=== PATIENT | male | born 1975 | race Caucasian/White ===

== ENCOUNTER 2020-12-11 08:09 | Outpatient (REF) | payer BC, SELFPAY ==
[2020-12-11 11:29] LABS: MANUAL DIFF FLAG NO
[2020-12-11 11:37] LABS: Basophils Percent Auto 0.4 % (0-2); Eosinophils Absolute Auto 0.1 X10*3/uL (0.0-0.4); Eosinophils Percent Auto 2.3 % (0-4); Hemoglobin 15.3 g/dl (14.0-18.0); Imm Gran Abs Auto 0.03 X10*3/uL (0.00-0.03); Imm Gran Pct Auto 0.6 % (0.0-0.4); Lymphocytes Absolute Auto 1.7 X10*3/uL (1.2-4.9); Lymphocytes Percent Auto 33.7 % (20-40); Mean Corpuscular Hemoglobin 30.6 pg (27.0-33.0); Monocytes Absolute Auto 0.4 X10*3/uL (0.1-1.2); Monocytes Percent Auto 7.8 % (2-11); Neutrophils Absolute Auto 2.9 X10*3/uL (2.0-8.3); Neutrophils Percent Auto 55.2 % (45-73); Platelet Count 170 X10*3/uL (160-400); Red Cell Distribution Width 12.3 % (11.0-16.0); White Blood Count 5.2 X10*3/uL (4.8-10.8)
[2020-12-11 11:50] LABS: Alanine Aminotransferase 14 U/L (0-40); Albumin Level 4.6 g/dL (3.5-5.0); Alkaline Phosphatase 80 U/L (39-117); Anion Gap 12 (12-20); Aspartate Amino Transferase 16 U/L (5-37); Bilirubin Total 1.2 mg/dL (0.0-1.0); Blood Urea Nitrogen 15 mg/dL (9-16); Calcium 9.5 mg/dL (8.4-10.2); Carbon Dioxide 28 mmol/L (22-29); Chloride 105 mmol/L (96-108); Cholesterol 174 mg/dL; Estimated Glomerular Filt Rate > 60; Glucose Fasting 80 mg/dL (60-99); HDL Cholesterol 51 mg/dL; LDL Cholesterol Calculated 112 mg/dl; Sodium 141 mmol/L (135-145); Total Protein 6.9 g/dL (6.5-8.0); Triglycerides 55 mg/dL
== END 2020-12-11 08:10 | disposition home or self-care (01) ==
LOC: HO.HMGCLDS 08:09
PROVIDERS: PCP Internal Medicine; Visit Provider Internal Medicine
DX: Z00.00 Encounter for general adult medical examination without abnormal findings (principal)
CPT/HCPCS: 36415; 80053; 80061; 85025

== ENCOUNTER 2021-11-20 10:12 | Outpatient (REF) | payer BC, SELFPAY ==
[2021-11-20 10:32] LABS: MANUAL DIFF FLAG NO
[2021-11-20 11:53] LABS: Basophils Percent Auto 0.3 % (0-2); Eosinophils Absolute Auto 0.2 X10*3/uL (0.0-0.4); Hematocrit 43.1 % (42.0-52.0); Hemoglobin 14.4 g/dl (14.0-18.0); Imm Gran Abs Auto 0.05 X10*3/uL (0.00-0.03); Imm Gran Pct Auto 0.5 % (0.0-0.4); Lymphocytes Absolute Auto 1.5 X10*3/uL (1.2-4.9); Lymphocytes Percent Auto 13.7 % (20-40); Mean Corpuscular HGB Conc 33.4 g/dl (31.0-36.0); Mean Corpuscular Hemoglobin 29.6 pg (27.0-33.0); Mean Corpuscular Volume 88.7 fL (80.0-98.0); Mean Platelet Volume 10.4 fL (9.4-12.4); Monocytes Absolute Auto 0.7 X10*3/uL (0.1-1.2); Monocytes Percent Auto 5.9 % (2-11); Neutrophils Absolute Auto 8.6 x10*3/uL (2.0-8.3); Neutrophils Percent Auto 77.6 % (45-73); Platelet Count 198 X10*3/uL (160-400); Red Blood Count 4.86 X10*6/uL (4.60-5.80); Red Cell Distribution Width 12.5 % (11.0-16.0); White Blood Count 11.1 X10*3/uL (4.8-10.8)
[2021-11-20 11:55] LABS: Appearance Urine CLEAR; Color Urine STRAW; Glucose Urine UA NEG (NEG); Leukocyte Esterase Urine NEG (NEG); Nitrite Urine NEG (NEG); Specific Gravity - Urine <= 1.005 (1.005-1.025); Urine Blood TRACE (NEG); Urine Ketones NEG (NEG); Urine Protein NEG (NEG-TRACE)
[2021-11-20 12:04] LABS: WBC Urine 0 /HPF (0-4)
[2021-11-20 13:00] LABS: Alanine Aminotransferase 12 U/L (0-40); Albumin Level 4.3 g/dL (3.5-5.0); Alkaline Phosphatase 88 U/L (39-117); Anion Gap 13 (12-20); Aspartate Amino Transferase 13 U/L (5-37); Bilirubin Total 0.8 mg/dL (0.0-1.0); Blood Urea Nitrogen 13 mg/dL (9-16); C Reactive Protein 4.92 mg/dL (< or = 0.50); Calcium 9.8 mg/dL (8.4-10.2); Carbon Dioxide 30 mmol/L (22-29); Chloride 103 mmol/L (96-108); Cholesterol 148 mg/dL; Estimated Glomerular Filt Rate > 60; Glucose Random 71 mg/dL (60-115); Lipase 22 U/L (8-78); Potassium 4.6 mmol/L (3.3-5.1); Sodium 141 mmol/L (135-145)
== END 2021-11-20 10:13 | disposition home or self-care (01) ==
LOC: HO.LAB 10:12
PROVIDERS: PCP Internal Medicine; Visit Provider Internal Medicine
DX: Z00.00 Encounter for general adult medical examination without abnormal findings (principal)
CPT/HCPCS: 36415; 80053; 81001; 82465; 83690; 85025; 86140; 87086

== ENCOUNTER 2021-11-21 13:45 | Outpatient (REF) | payer BC, SELFPAY ==
--- NOTE | ~2021-11-21 | CT_ITS ---
EXAMINATION: CT ABDOMEN AND PELVIS WITHOUT CONTRAST CLINICAL INFORMATION: Abdominal pain question pancreatitis COMPARISON: None TECHNIQUE: Multidetector volumetric imaging was performed from the superior aspect of the liver through the pubic symphysis. Sagittal and coronal reformatted images were obtained on the technologist's workstation. This CT examination was performed using dose optimization techniques as appropriate, variously including the following: *Automated exposure control *Adjustment of mA and/or kV according to patient size (this includes techniques or standardized protocols for targeted exams where dose is matched to indication/reason for exam; i.e. extremities or head) *Use of iterative reconstruction technique DLP: 527 mGy-cm FINDINGS: LUNG BASES: The lung bases are clear. The heart size is normal. LIVER, GALLBLADDER, AND BILIARY TREE: The liver is normal in size, shape, and attenuation. No focal hepatic lesion or biliary ductal dilatation is present. The gallbladder is unremarkable with no evidence of radiopaque gallstones, gallbladder wall thickening, or obvious pericholecystic inflammatory changes. PANCREAS: Unremarkable. SPLEEN: Unremarkable. ADRENAL GLANDS: Unremarkable. KIDNEYS AND URETERS: The kidneys are normal in size, shape, and attenuation. There is a 3 minute nonobstructive radiopaque calculi upper pole left kidney and a 1 mm nonobstructive radiopaque calculi lower pole right kidney. No additional radiopaque calculi seen. There is no hydronephrosis. BLADDER: Unremarkable. GASTROINTESTINAL TRACT: There is scattered stool and gas seen throughout the colon without distention. Oral contrast and best stomach and the proximal small bowel loops are normal. The appendix is abnormal with a mural thickening of 1.5 cm and dottie appendix fat stranding suggestive of acute appendicitis. There is no appendicolith, abnormal fluid collection or free air. No proximal bowel obstruction seen. ABDOMINAL WALL: There is scattered stool and gas seen throughout the colon without any significant distention. The small bowel loops are normal caliber. LYMPH NODES: Normal. VASCULAR: Unremarkable. PELVIC VISCERA: The prostate gland is normal size with eccentric peripheral calcification. OSSEOUS STRUCTURES: No lytic or sclerotic process seen. CT/CT abdomen pelvis wo con IMPRESSION: Findings suggestive of acute appendicitis without rupture or abscess. No proximal bowel obstruction seen. Results were called to Dr. Pierce by phone at 11:20 AM. Fleischner guidelines were followed.
== END 2021-11-21 13:46 | disposition home or self-care (01) ==
LOC: HO.CT 13:45
PROVIDERS: PCP Internal Medicine; Visit Provider Internal Medicine
DX: R10.9 Unspecified abdominal pain (principal); R79.82 Elevated C-reactive protein (CRP)
CPT/HCPCS: 74176

== ENCOUNTER 2021-11-22 12:43 | Inpatient (IN) | payer BC, SELFPAY ==
[2021-11-22 12:47] VITALS: BP 199/65; PULSE 70; RESP 16; O2SAT 98; BMI 25.3
--- NOTE | 2021-11-22 13:08 | ED.ABDPAIN ---
HPI - Abdominal Pain General Chief Complaint: Abdominal Pain Stated Complaint: appendix Time Seen by Provider: 11/22/21 12:58 Source: patient Mode of arrival: ambulatory Limitations: no limitations History of Present Illness MD elicited complaint: abdominal pain Pertinent past history: none Onset (ago): day(s) (3) Pain Consistency: constant Location: RLQ Severity: moderate Quality: aching Radiation: none Migration to: no migration Exacerbating factors: movement Relieving factors: medication (advil) Associated symptoms: denies other symptoms Treatments prior to arrival: other (took advil at 7am) Related Data Home Medications Medication Instructions Recorded Confirmed lamotrigine 25 mg tablet 2 tab PO DAILY 11/22/21 11/22/21 Allergies Allergy/AdvReac Type Severity Reaction Status Date / Time No Known Allergies Allergy Verified 11/22/21 12:46 Review of Systems Review of Systems Constitutional : No Weight loss, No Fever, No Chills ENT/Mouth : No sore throat, No Rhinorrhea Eyes: No Swelling, No Redness Cardiovascular : No Chest Pain, No SOB, NoEdema Respiratory : No Cough, No Sputum, No Wheezing Gastrointestinal : no Nausea, no Vomiting, no Diarrhea, positive abdominal Pain, No Hematochezia, No Melena Genitourinary : No Dysuria, No Urinary Frequency, No Hematuria, No Urgency Musculoskeletal : No joint pain, No Myalgias, No Joint Swelling Skin : No Skin Lesions, No rash Neuro : No Weakness, No Numbness, No Dizziness, No Headache Psych : No Anxiety/Panic, No Depression Heme/Lymph: No Bruising, No Lymphadenopathy Endocrine : No Polyuria, No Polydipsia All other systems reviewed and are negative. FOR[facility], [facility] Past Medical History Attestation statement: The following information was validated with the patient. Medical History (Updated 11/22/21 @ 13:48 by Jordan Gutierrez MD) History of depression No pertinent past medical history Social History Social History (Updated 11/22/21 @ 13:27 by Francesca Brewster DO) Patient Tobacco Use Status: Never used Tobacco Advance Directives: No Advance Directives Information Provided: No Physical Exam ED Vital Signs: Vital Signs - 24 hr 11/22/21 12:47 Pulse Rate 70 Respiratory Rate 16 Blood Pressure 199/65 H Pulse Oximetry 98 BMI result Body Mass Index 25.3 Appearance: Alert. Oriented X3. No acute distress. Eyes: Pupils equal, round and reactive to light. ENT: Pharynx normal. Neck: Normal inspection. Neck supple. CVS: Normal heart rate and rhythm. Pulses normal. Respiratory: No respiratory distress. Breath sounds normal. Abdomen: Soft and mod ttp in RLQ no rebound or guarding Skin: Skin warm and dry. Normal skin color. Normal skin turgor. Extremities: No lower extremity edema. No calf ttp Neuro: Oriented X 3. No motor deficit. No sensory deficit. Course Course Course Narrative: Dr. Gutierrez aware 105pm to admit patient MDM - Abdominal Pain MDM Narrative Medical decision making narrative: 46 yo male with 3 days of RLQ pain dx with appendicitis by outpatient CT scan yesterday - at this time labs, IV toradol for pain, fluids NPO status, IV zosyn and surgery consult placed - planned admit. Patiend did eat today last 11am Lab Data Result diagrams: 11/22/21 13:37 11/22/21 13:37 Labs: Lab Results 11/22/21 11/22/21 11/22/21 Range/Units 13:37 13:37 13:37 WBC 12.0 H (4.8-10.8) X10*3/uL RBC 4.69 (4.60-5.80) X10*6/uL Hgb 14.2 (14.0-18.0) g/dl Hct 41.4 L (42.0-52.0) % MCV 88.3 (80.0-98.0) fL MCH 30.3 (27.0-33.0) pg MCHC 34.3 (31.0-36.0) g/dl RDW 12.4 (11.0-16.0) % Plt Count 194 (160-400) X10*3/uL MPV 9.8 (9.4-12.4) fL Immature Gran % (Auto) 0.3 (0.0-0.4) % Neut % (Auto) 78.8 H (45-73) % Lymph % (Auto) 11.9 L (20-40) % Andrew % (Auto) 6.9 (2-11) % Eos % (Auto) 1.8 (0-4) % Baso % (Auto) 0.3 (0-2) % Lymph # (Auto) 1.4 (1.2-4.9) X10*3/uL Andrew # (Auto) 0.8 (0.1-1.2) X10*3/uL Eos # (Auto) 0.2 (0.0-0.4) X10*3/uL Baso # (Auto) 0.0 (0.0-0.2) X10*3/uL Abs Immat Gran (auto) 0.03 (0.00-0.03) X10*3/uL Absolute Neuts (auto) 9.4 H (2.0-8.3) x10*3/uL Absolute Nucleated RBC 0.000 (0.0-0.012) X10*3/uL Nucleated RBC % (auto) 0.0 (0.0-0.2) /100WBC PT (9.9-13.0) SEC INR (0.9-1.1) APTT (24.1-38.0) SEC Sodium 141 (135-145) mmol/L Potassium 4.6 (3.3-5.1) mmol/L Chloride 104 (96-108) mmol/L Carbon Dioxide 31 H (22-29) mmol/L Anion Gap 11 L (12-20) BUN 13 (9-16) mg/dL Creatinine 1.02 (0.5-1.4) mg/dL Estim Creat Clear Calc 104.4 Estimated GFR > 60 Random Glucose 88 (60-115) mg/dL Lactic Acid 0.9 (0.5-2.0) mmol/L Calcium 9.4 (8.4-10.2) mg/dL Magnesium 2.1 (1.6-2.6) mg/dL Total Bilirubin 0.6 (0.0-1.0) mg/dL Direct Bilirubin 0.2 (0.0-0.5) mg/dL AST 12 (5-37) U/L ALT 12 (0-40) U/L Alkaline Phosphatase 86 (39-117) U/L Total Protein 6.8 (6.5-8.0) g/dL Albumin 4.2 (3.5-5.0) g/dL Lipase 19 (8-78) U/L COVID-19 (MARIA L) (Negative) COVID-19 Clin Com 11/22/21 11/22/21 Range/Units 13:37 13:38 WBC (4.8-10.8) X10*3/uL RBC (4.60-5.80) X10*6/uL Hgb (14.0-18.0) g/dl Hct (42.0-52.0) % MCV (80.0-98.0) fL MCH (27.0-33.0) pg MCHC (31.0-36.0) g/dl RDW (11.0-16.0) % Plt Count (160-400) X10*3/uL MPV (9.4-12.4) fL Immature Gran % (Auto) (0.0-0.4) % Neut % (Auto) (45-73) % Lymph % (Auto) (20-40) % Andrew % (Auto) (2-11) % Eos % (Auto) (0-4) % Baso % (Auto) (0-2) % Lymph # (Auto) (1.2-4.9) X10*3/uL Andrew # (Auto) (0.1-1.2) X10*3/uL Eos # (Auto) (0.0-0.4) X10*3/uL Baso # (Auto) (0.0-0.2) X10*3/uL Abs Immat Gran (auto) (0.00-0.03) X10*3/uL Absolute Neuts (auto) (2.0-8.3) x10*3/uL Absolute Nucleated RBC (0.0-0.012) X10*3/uL Nucleated RBC % (auto) (0.0-0.2) /100WBC PT 13.1 H (9.9-13.0) SEC INR 1.2 H (0.9-1.1) APTT 36.3 (24.1-38.0) SEC Sodium (135-145) mmol/L Potassium (3.3-5.1) mmol/L Chloride (96-108) mmol/L Carbon Dioxide (22-29) mmol/L Anion Gap (12-20) BUN (9-16) mg/dL Creatinine (0.5-1.4) mg/dL Estim Creat Clear Calc Estimated GFR Random Glucose (60-115) mg/dL Lactic Acid (0.5-2.0) mmol/L Calcium (8.4-10.2) mg/dL Magnesium (1.6-2.6) mg/dL Total Bilirubin (0.0-1.0) mg/dL Direct Bilirubin (0.0-0.5) mg/dL AST (5-37) U/L ALT (0-40) U/L Alkaline Phosphatase (39-117) U/L Total Protein (6.5-8.0) g/dL Albumin (3.5-5.0) g/dL Lipase (8-78) U/L COVID-19 (MARIA L) Negative (Negative) COVID-19 Clin Com See Note Discharge Plan Discharge Clinical Impression: Abdominal pain Qualifiers: Abdominal location: right lower quadrant Qualified Code(s): R10.31 - Right lower quadrant pain Acute appendicitis Qualifiers: Acute appendicitis type: with localized peritonitis Appendicitis gangrene presence: without gangrene Appendicitis perforation presence: without perforation Appendicitis abscess presence: without abscess Qualified Code(s): K35.30 - Acute appendicitis with localized peritonitis, without perforation or gangrene Patient Disposition: Admitted As Inpatient
[2021-11-22 13:44] LABS: MANUAL DIFF FLAG NO
--- NOTE | 2021-11-22 13:45 | P.HPGS_ITS ---
History of Present Illness History of Present Illness Date of Service: 11/23/21 Chief complaint: Acute appendicitis Narrative: Jabier Matos III is a 46 year old male here in the ER because of lower quadrant pain. This started about 4 days ago. He says that this actually seemed to be more of the epigastric area at that time but has since been on the lower quadrant and the suprapubic areas. He had seen his primary care physician days ago. He was sent for a CT scan which was done yesterday. He was actually at home today and he was called to go to the ER because of findings on the CT scan showing appendicitis . He says that he actually feels a little better today compared to yesterday. He says that the worst he had was about a day before and yesterday. He denies any fever at home. He denies any vomiting. He denies any urinary complaints. He also says that he would not have come to the emergency room today if nobody had instructed him to do so. Review of Systems Constitutional: Constitutional: Denies chills and Denies fever(s) Cardiovascular: Cardiovascular: Denies chest pain, Denies dyspnea and Denies dyspnea on exertion Respiratory: Respiratory: Denies cough, Denies dyspnea and Denies dyspnea on exertion Gastrointestinal: Gastrointestinal: Denies hematochezia and Denies change in bowel habits Genitourinary: Genitourinary: Denies hematuria and Denies difficulty urinating Musculoskeletal: Musculoskeletal: Denies back pain and Denies limited range of motion Neurologic: Denies focal weakness and Denies convulsions Psychiatric: Psychiatric: Denies depression and Denies mood swings PMFSH Past Medical History Medical History (Updated 11/22/21 @ 13:48 by Jordan Gutierrez MD) History of depression No pertinent past medical history Social History Social History (Updated 11/22/21 @ 13:27 by Francesca Brewster DO) Household Members: Spouse Housing: House Do you presently have visiting nurse or other home services: No Patient Tobacco Use Status: Never used Tobacco service: No Current occupational status: unemployed Meds Allergies Allergy/AdvReac Type Severity Reaction Status Date / Time No Known Allergies Allergy Verified 11/22/21 12:46 Active Medications: Current Medications Lactated Ringer's (Lr) 1,000 mls @ 999 mls/hr IV .Q1H1M [facility] Stop: 11/22/21 14:00 Sodium Chloride (Ns) 1,000 mls @ 100 mls/hr IVCONT .Q10H [facility] Piperacillin Sod/Tazobactam (Sod 3.375 gm/ Sodium Chloride) 50 mls @ 100 mls/hr IV ONCE ONE Stop: 11/22/21 14:11 Lamotrigine (Lamotrigine 25 Mg Tablet) 50 mg PO DAILY [facility] Morphine Sulfate (Morphine Sulfate 2 Mg/Ml Cartridge) 2 mg IVPUSH Q3H PRN; Protocol PRN Reason: Pain, Severe (Pain Scale 7-10) Ondansetron HCl (Ondansetron Hcl 4 Mg/2 Ml Vial) 4 mg IVPUSH Q8H PRN PRN Reason: nausea Pharmacy Consult (Consult Rx Perform Med Rec) 1 each MISCELLANE ONCE PRN PRN Reason: Consult order Sodium Chloride (0.9 % Sodium Chloride Flush 3 Ml Syringe) 3 ml IVFLUSH QSHIFT [facility] Home Medications Medication Instructions Recorded Confirmed Last Taken Type lamotrigine 25 mg tablet 2 tab PO DAILY 11/22/21 11/22/21 Unknown History Physical Exam Vital Signs: Vital Signs: Last Vital Signs Pulse 70 11/22/21 12:47 Resp 16 11/22/21 12:47 BP 199/65 H 11/22/21 12:47 Pulse Ox 98 11/22/21 12:47 BMI result Body Mass Index 25.3 Const: General: comfortable and no acute distress Orientati on/consciousness: patient oriented x3 Neck: Neck: Yes no lymphadenopathy Resp: Auscultation: clear to auscultation bilaterally Cardio: Rhythm: regular rhythm GI: Palpation (GI): Soft to palpation, nontender and no guarding Neuro: General: patient oriented x3 Results Results Abdomen CT scan report/results: report reviewed and image reviewed CT scan - pelvis: report reviewed and image reviewed Additional studies: Laboratory Results WBC 12.0 X10*3/uL (4.8-10.8) H 11/22/21 13:37 RBC 4.69 X10*6/uL (4.60-5.80) 11/22/21 13:37 Hgb 14.2 g/dl (14.0-18.0) 11/22/21 13:37 Hct 41.4 % (42.0-52.0) L 11/22/21 13:37 MCV 88.3 fL (80.0-98.0) 11/22/21 13:37 MCH 30.3 pg (27.0-33.0) 11/22/21 13:37 MCHC 34.3 g/dl (31.0-36.0) 11/22/21 13:37 RDW 12.4 % (11.0-16.0) 11/22/21 13:37 Plt Count 194 X10*3/uL (160-400) 11/22/21 13:37 MPV 9.8 fL (9.4-12.4) 11/22/21 13:37 Immature Gran % (Auto) 0.3 % (0.0-0.4) 11/22/21 13:37 Neut % (Auto) 78.8 % (45-73) H 11/22/21 13:37 Lymph % (Auto) 11.9 % (20-40) L 11/22/21 13:37 [place] % (Auto) 6.9 % (2-11) 11/22/21 13:37 Eos % (Auto) 1.8 % (0-4) 11/22/21 13:37 Baso % (Auto) 0.3 % (0-2) 11/22/21 13:37 Lymph # (Auto) 1.4 X10*3/uL (1.2-4.9) 11/22/21 13:37 [place] # (Auto) 0.8 X10*3/uL (0.1-1.2) 11/22/21 13:37 Eos # (Auto) 0.2 X10*3/uL (0.0-0.4) 11/22/21 13:37 Baso # (Auto) 0.0 X10*3/uL (0.0-0.2) 11/22/21 13:37 Abs Immat Gran (auto) 0.03 X10*3/uL (0.00-0.03) 11/22/21 13:37 Absolute Neuts (auto) 9.4 x10*3/uL (2.0-8.3) H 11/22/21 13:37 Absolute Nucleated RBC 0.000 X10*3/uL (0.0-0.012) 11/22/21 13:37 Nucleated RBC % (auto) 0.0 /100WBC (0.0-0.2) 11/22/21 13:37 Assessment and Plan (1) Acute appendicitis: Qualifiers: Acute appendicitis type: with localized peritonitis Appendicitis abscess presence: without abscess Appendicitis gangrene presence: without gangrene Appendicitis perforation presence: without perforation Qualified Code(s): K35.30 - Acute appendicitis with localized peritonitis, without perforation or gangrene Status: Acute He has had abdominal pain for about 4-5 days now. He had a CAT scan yesterday as an outpatient showing acute appendicitis. There is no appendicolith in the appendix. He has a very benign exam. He does have some tenderness to deep palpation on the right lower quadrant with no guarding or rebound. He actually states that he feels better today compared to yesterday. I therefore had a long discussion with him about his options. I explained to him the option of proceeding with appendectomy. I discussed the technique of laparoscopic appendectomy and possible open. I reviewed the risks including but not limited to bleeding, infections, injury to the bowel and the urinary tract, well as benefits and alternatives. The other option is to continue with IV antibiotic treatment. I explained to him that if he chooses this route, he may still have episodes of appendicitis in the future. There is also a chance that he clinically gets worse then we may need to proceed with appendectomy anyhow. He says that he 1 to avoid surgery as much as possible especially now. He states that he thinks that he feels better compared to yesterday. He understands that there is a small chance that antibiotic treatment may not work completely. I did explain to him that if I feel that he clinically is worsening or not improving within a reasonable period of time, I would recommend proceeding with the surgical option. His Johanna was with him during the entire discussion. They both feel comfortable with the above. Quality Stroke Does the patient have a stroke diagnosis?: No VTE Prior VTE?: No VTE Risk Level:: Medical - low VTE Device Contraindication: N/A - Device Ordered VTE Drug Contraindication: Treatment Not Indicated Procedures Date of Service Date of Service: 11/22/21
[2021-11-22 13:47] LABS: Basophils Percent Auto 0.3 % (0-2); Eosinophils Absolute Auto 0.2 X10*3/uL (0.0-0.4); Eosinophils Percent Auto 1.8 % (0-4); Hematocrit 41.4 % (42.0-52.0); Hemoglobin 14.2 g/dl (14.0-18.0); Imm Gran Abs Auto 0.03 X10*3/uL (0.00-0.03); Imm Gran Pct Auto 0.3 % (0.0-0.4); Lymphocytes Absolute Auto 1.4 X10*3/uL (1.2-4.9); Lymphocytes Percent Auto 11.9 % (20-40); Mean Corpuscular HGB Conc 34.3 g/dl (31.0-36.0); Mean Corpuscular Hemoglobin 30.3 pg (27.0-33.0); Mean Corpuscular Volume 88.3 fL (80.0-98.0); Mean Platelet Volume 9.8 fL (9.4-12.4); Monocytes Absolute Auto 0.8 X10*3/uL (0.1-1.2); Monocytes Percent Auto 6.9 % (2-11); Neutrophils Absolute Auto 9.4 x10*3/uL (2.0-8.3); Neutrophils Percent Auto 78.8 % (45-73); Platelet Count 194 X10*3/uL (160-400); Red Blood Count 4.69 X10*6/uL (4.60-5.80); Red Cell Distribution Width 12.4 % (11.0-16.0)
[2021-11-22] MEDS: 0.9 % Sodium Chloride 1,000 ML 100 ML IVCONT ×2 (13:57→22:51)
--- NOTE | 2021-11-22 14:01 | PHA.MEDREC ---
Pharmacy Consult ? Medication Reconciliation Pharmacy has completed the medication reconciliation.
[2021-11-22 14:03] LABS: COVID-19 Test Negative (Negative)
[2021-11-22 14:05] LABS: Lactic Acid 0.9 mmol/L (0.5-2.0)
[2021-11-22] MEDS: Piperacillin Sodium/Tazobactam 3.375 GM in 0.9 % Sodium Chloride 50 ML IV ×2 (14:07→19:29)
[2021-11-22 14:09] LABS: Alanine Aminotransferase 12 U/L (0-40); Albumin Level 4.2 g/dL (3.5-5.0); Alkaline Phosphatase 86 U/L (39-117); Anion Gap 11 (12-20); Aspartate Amino Transferase 12 U/L (5-37); Bilirubin Direct 0.2 mg/dL (0.0-0.5); Bilirubin Total 0.6 mg/dL (0.0-1.0); Blood Urea Nitrogen 13 mg/dL (9-16); Calcium 9.4 mg/dL (8.4-10.2); Carbon Dioxide 31 mmol/L (22-29); Chloride 104 mmol/L (96-108); Creatinine Clr Calc Pharmacy 104.4; Estimated Glomerular Filt Rate > 60; Glucose Random 88 mg/dL (60-115); Lipase 19 U/L (8-78); Magnesium 2.1 mg/dL (1.6-2.6); Potassium 4.6 mmol/L (3.3-5.1); Sodium 141 mmol/L (135-145); Total Protein 6.8 g/dL (6.5-8.0)
[2021-11-22 14:25] LABS: INTERNATIONAL NORM RATIO 1.2 (0.9-1.1); Prothrombin Time 13.1 SEC (9.9-13.0)
[2021-11-22 14:28] LABS: Partial Thromboplastin Time 36.3 SEC (24.1-38.0)
--- NOTE | 2021-11-22 17:12 | PM.EVENT ---
Event Note Date of Service: 11/22/21 Event Note: Says he feels okay does not feel worse low-grade pain no nausea or vomiting looks well and comfortable abdomen soft, mildly tender, no guarding rebound he wants to continue with non operative treatment for now IV Zosyn will continue serial abdominal exam repeat CBC in a.m.
--- NOTE | 2021-11-22 18:08 | MHC.CM.PN ---
CM met with admitted patient with bed assignment pending. A&Ox4. HCP/ Johanna Matos ([phone]). HCP is not on file. Copy requested. Vax/Boosted/Beegit. Pt had Covid 19 in August. Pt lives with his and family. Uses no DME/services. D/C plan is home without services. will transport. CM to follow for d/c needs.
[2021-11-22 18:48] VITALS: BP 113/71; PULSE 74; RESP 18; TEMP 37.6; O2SAT 97
[2021-11-22] MEDS: Ibuprofen 600 MG TABLET PO (19:26)
[2021-11-22 19:27] VITALS: BP 110/63; PULSE 76; RESP 16; TEMP 37.2; O2SAT 97
[2021-11-22 23:31] VITALS: BP 102/62; PULSE 66; RESP 16; TEMP 36.7; O2SAT 97
[2021-11-23] MEDS: Piperacillin Sodium/Tazobactam 3.375 GM in 0.9 % Sodium Chloride 50 ML IV ×4 (01:30→19:32)
[2021-11-23 03:21] VITALS: BP 106/63; PULSE 59; RESP 16; TEMP 37.2; O2SAT 96
[2021-11-23 05:08] LABS: Hematocrit 37.9 % (42.0-52.0); Mean Corpuscular HGB Conc 34.3 g/dl (31.0-36.0); Mean Corpuscular Hemoglobin 30.2 pg (27.0-33.0); Mean Corpuscular Volume 87.9 fL (80.0-98.0); Mean Platelet Volume 10.2 fL (9.4-12.4); Platelet Count 198 X10*3/uL (160-400); Red Blood Count 4.31 X10*6/uL (4.60-5.80); Red Cell Distribution Width 12.1 % (11.0-16.0); White Blood Count 9.6 X10*3/uL (4.8-10.8)
[2021-11-23 07:42] VITALS: BP 99/58; PULSE 72; RESP 18; TEMP 37.1; O2SAT 96
--- NOTE | 2021-11-23 08:14 | P.PNGS_ITS ---
Subjective Subjective Date of Service: 11/26/21 Interval history: feels well minimal pain no nausea or vomiting tolerating liquids says that his urine looks concentrated Physical Exam Vital Signs: Vital Signs: Last Vital Signs Temp 98.8 F 11/23/21 07:42 Pulse 72 11/23/21 07:42 Resp 18 11/23/21 07:42 BP 99/58 L 11/23/21 07:42 Pulse Ox 96 11/23/21 07:42 BMI result Body Mass Index 25.3 Const: General: comfortable and no acute distress Resp: Effort & Inspection: normal respiratory effort Cardio: Rate: regular rate GI: Other: minimal tenderness suprapubic area and right lower quadrant Palpation (GI): Soft to palpation, not firm, nontender and no guarding Objective Data Active Medications Sodium Chloride (Ns) 1,000 mls @ 100 mls/hr IVCONT .Q10H [facility] Last Admin: 11/22/21 22:51 Dose: 100 mls/hr Documented by: CECILIA Piperacillin Sod/Tazobactam (Sod 3.375 gm/ Sodium Chloride) 50 mls @ 100 mls/hr IV Q6H [facility] Last Infusion: 11/23/21 02:05 Dose: 0 mls/hr Documented by: CLARISSA Ibuprofen (Ibuprofen 600 Mg Tablet) 600 mg PO Q6H PRN PRN Reason: Pain, Moderate (Pain Scale 4-6 Last Admin: 11/22/21 19:26 Dose: 600 mg Documented by: CECILIA Lamotrigine (Lamotrigine 25 Mg Tablet) 50 mg PO DAILY [facility] Morphine Sulfate (Morphine Sulfate 2 Mg/Ml Cartridge) 2 mg IVPUSH Q3H PRN; Protocol PRN Reason: Pain, Severe (Pain Scale 7-10) Ondansetron HCl (Ondansetron Hcl 4 Mg/2 Ml Vial) 4 mg IVPUSH Q8H PRN PRN Reason: nausea Pharmacy Consult (Consult Rx Perform Med Rec) 1 each MISCELLANE ONCE PRN PRN Reason: Consult order Sodium Chloride (0.9 % Sodium Chloride Flush 3 Ml Syringe) 3 ml IVFLUSH QSHIFT [facility] Last Admin: 11/23/21 00:53 Dose: Not Given Documented by: CECILIA Non-Admin Reason: IV Running Labs CBC & Chem 7: 11/23/21 04:18 11/22/21 13:37 Labs: Laboratory Results - last 24 hr 11/22/21 11/22/21 11/22/21 13:37 13:37 13:37 MCV 88.3 MCH 30.3 MCHC 34.3 RDW 12.4 Plt Count 194 MPV 9.8 Immature Gran % (Auto) 0.3 Neut % (Auto) 78.8 H Lymph % (Auto) 11.9 L [place] % (Auto) 6.9 Eos % (Auto) 1.8 Baso % (Auto) 0.3 Lymph # (Auto) 1.4 [place] # (Auto) 0.8 Eos # (Auto) 0.2 Baso # (Auto) 0.0 Abs Immat Gran (auto) 0.03 Absolute Neuts (auto) 9.4 H Absolute Nucleated RBC 0.000 Nucleated RBC % (auto) 0.0 PT INR APTT Anion Gap 11 L Estim Creat Clear Calc 104.4 Estimated GFR > 60 Random Glucose 88 Lactic Acid 0.9 Calcium 9.4 Magnesium 2.1 Total Bilirubin 0.6 Direct Bilirubin 0.2 AST 12 ALT 12 Alkaline Phosphatase 86 Total Protein 6.8 Albumin 4.2 Lipase 19 COVID-19 (MARIA L) COVID-REPP 11/22/21 11/22/21 11/23/21 13:37 13:38 04:18 MCV 87.9 MCH 30.2 MCHC 34.3 RDW 12.1 Plt Count 198 MPV 10.2 Immature Gran % (Auto) Neut % (Auto) Lymph % (Auto) [place] % (Auto) Eos % (Auto) Baso % (Auto) Lymph # (Auto) [place] # (Auto) Eos # (Auto) Baso # (Auto) Abs Immat Gran (auto) Absolute Neuts (auto) Absolute Nucleated RBC 0.000 Nucleated RBC % (auto) 0.0 PT 13.1 H INR 1.2 H APTT 36.3 Anion Gap Estim Creat Clear Calc Estimated GFR Random Glucose Lactic Acid Calcium Magnesium Total Bilirubin Direct Bilirubin AST ALT Alkaline Phosphatase Total Protein Albumin Lipase COVID-19 (MARIA L) Negative COVID-19 [employer] See Note Procedures Date of Service Date of Service: 11/23/21 Progress Note: A&P Assessment and plan (1) Acute appendicitis: Status: Acute Plan he opted to go with non-surgical management for now in view of minimal symptoms looks well abdomen soft benign, minimally tender WBC normal continue IV antibiotics plan to start regular diet later on today possible DC home tomorrow or Friday on p.o. antibiotics he understands the plan well Time Spent With Patient Time: Total time spent is greater than 50% in coordination of care (as documented) at patient's floor/unit and/or counseling patient: Quality Stroke Does the patient have a stroke diagnosis?: No VTE Prior VTE?: No VTE Risk Level:: Medical - low VTE Device Contraindication: N/A - Device Ordered VTE Drug Contraindication: Treatment Not Indicated
[2021-11-23] MEDS: lamoTRIgine 25 MG TABLET 50 MG PO (09:26)
[2021-11-23 11:08] VITALS: BP 101/64; PULSE 75; RESP 18; TEMP 36.7; O2SAT 95
[2021-11-23] MEDS: 0.9 % Sodium Chloride 1,000 ML 100 ML IVCONT (11:15)
--- NOTE | 2021-11-23 12:40 | MHC.CM.PN ---
NURSE CLINICAL ACCOUNT SPECIALIST NOTE ELECTRONIC MEDICAL RECORD REVIEWED ALONG WITH CASE DISCUSSED WITH STAFF NURSE AND MET WITH PATIENT , DIAGNOSIS ON ADMISSION ACUTE APPENDICITIS with plan for non surgical conservative management., HE IS CURRENLTY ON LIQUIDS DIETS AND PLAN TO ADVANCE THE DIET Later today per patient , he continues on iv abx , per surgeons note if tolerating diet and labs are ok possible discharge over the weekeend. discharge plan home with his and children no services pcp dr juvencio freire instructed patient to call for post hospitla discharge follow up transportation his . vaxed booster with cami
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
--- NOTE | 2021-11-23 15:21 | PM.EVENT ---
Event Note Date of Service: 11/23/21 Event Note: Continues to feel well Seen multiple times today Looks well Tolerating clear liquid Hungry and wants to eat Abdomen remained soft, nondistended, no guarding or rebound, has very minimal tenderness to deep palpation Will advance diet later on today Plan to continue IV antibiotics I told him that he may be able to go home later tomorrow for additional IV antibiotics or Friday morning as long as he continues to do well
[2021-11-23 15:30] VITALS: BP 106/68; PULSE 68; RESP 18; TEMP 37.2; O2SAT 97
[2021-11-23] MEDS: Ibuprofen 600 MG TABLET PO (17:05)
[2021-11-23 19:03] VITALS: BP 109/60; PULSE 95; RESP 14; TEMP 36.8; O2SAT 97
[2021-11-23 23:38] VITALS: BP 93/57; PULSE 72; RESP 16; TEMP 36.4; O2SAT 98
[2021-11-24] MEDS: 0.9 % Sodium Chloride 1,000 ML 100 ML IVCONT ×2 (00:26→11:06)
[2021-11-24] MEDS: Piperacillin Sodium/Tazobactam 3.375 GM in 0.9 % Sodium Chloride 50 ML IV ×3 (02:56→13:53)
[2021-11-24 03:45] VITALS: BP 82/65; PULSE 69; RESP 18; TEMP 36.3; O2SAT 97
[2021-11-24 04:44] VITALS: BP 98/60
[2021-11-24 07:11] VITALS: BP 118/64; PULSE 68; RESP 18; TEMP 36.9; O2SAT 98
[2021-11-24] MEDS: lamoTRIgine 25 MG TABLET 50 MG PO (09:20)
[2021-11-24 11:32] VITALS: BP 108/62; PULSE 70; RESP 18; TEMP 36.2; O2SAT 98
--- NOTE | 2021-11-24 13:16 | PM.DS ---
DS: Providers Provider Date of Service: 11/24/21 Date of admission: 11/22/21 13:39 Date of discharge: 11/24/21 Primary care physician: Jordan Pierce MD Admitting clinician: Jordan Gutierrez DS: Diagnosis Discharge Diagnosis (1) Acute appendicitis: Start date: 11/22/21 Status: Acute DS: Summary Hospital Course Hospital Course: 46 year old male with admission for acute appendicits which had been ongoing for a few days - he saw his pcp as outpt and had labs and ct scan and was then told to come to ER for dx of appendicits seen in ER and clinical exam was not bad so decided to do medical management with iv antibx. Tolerated iv Zosyn for a few days then converted to augmentin and plan for dc home and evaluate in office with goal for interval appendicitis. He and his understand and agree with the plan Status at Discharge Functional status at discharge: independent ambulation Overall status at discharge: patient is progressing back to baseline Time Spent with Patient Time attestation: Total time spent providing and/or coordinating discharge services: Discharge coordination time: Less than 30 minutes Quality: Safe Use of Opioids Does Pt have an Active Cancer Diagnosis on the Problem List?: No Quality: Stroke Does the patient have a stroke diagnosis?: No Reason for No Anti-thrombotic at DC: Not indicated Reason for No Anticoagulant at DC: Not indicated Physical Exam Vital Signs: Vital Signs: Last Vital Signs Temp 97.2 F 11/24/21 11:32 Pulse 70 11/24/21 11:32 Resp 18 11/24/21 11:32 BP 108/62 11/24/21 11:32 Pulse Ox 98 11/24/21 11:32 BMI result Body Mass Index 25.3 GI: Other: abdomen -soft nontender nondistended benign DS: Data Data Completed and Pending Labs on day of discharge: Preliminary micro results at discharge 11/22/21 13:54 Blood Culture - Preliminary Blood - Venous No growth after 24 hours. 11/22/21 13:54 Blood Culture - Preliminary Blood - Venous No growth after 24 hours. Discharge Plan Discharge Anticipated Discharge Date/Time: 11/24/21 13:15 Patient Disposition: Home, Self-Care Discharge Diagnosis: acute appendicitis Referrals: Jordan Pierce MD [Primary Care Provider] - 1 Week Jordan Gutierrez MD [Physician] - 1 Week Discharge Medications: New amoxicillin-pot clavulanate 875-125 mg tablet 1 tab PO BID Qty: 14 0RF Continued lamotrigine 25 mg tablet 2 tab PO DAILY 0RF Discharge Orders: Discharge Order (Routine); Ordered 11/24/21 Ordered By: Gloria Jacques Diet: regular diet Activity on Discharge: As tolerated Stand Alone Forms: Patient Portal Discharge page Activity Restrictions/Additional Instructions: Call office follow-up [phone] within 1-2 weeks Care Plan Goals: complete oral antibiotic course Health Concerns: acute appendicitis, treated with antibiotics Plan of Treatment: continue oral antibiotics possible interval appendectomy Assessment: doing very well
--- NOTE | 2021-11-24 13:52 | MHC.CM.PN ---
PT TO DC HOME TODAY WITH NO SERVICES FAMILY TO TRANSPORT
== END 2021-11-24 14:51 | disposition home or self-care (01) | DRG 248 ==
LOC: HO.ED 13:33 → HO.EDOVER 14:15 → HO.S3 17:27
PROVIDERS: Admitting Provider Surgery; Emergency Provider Emergency Medicine; PCP Internal Medicine; Visit Provider Surgery
DX: K35.30 Acute appendicitis with localized peritonitis, without perforation or gangrene (principal); Z20.822 Contact with and (suspected) exposure to COVID-19; Z87.442 Personal history of urinary calculi; Z87.891 Personal history of nicotine dependence; Z79.899 Other long term (current) drug therapy
CPT/HCPCS: 36415; 80048; 80076; 83605; 83690; 83735; 85025; 85027; 85610; 85730; 87040; 87635; 96361; 96374; 96375; 99285; J2543

== ENCOUNTER 2021-11-29 07:05 | Day surgery (SDC) | payer BC, SELFPAY ==
[2021-11-29] VITALS (17 sets, daily range): BP systolic 101–129; BP diastolic 60–79; PULSE 48–78; RESP 14–18; TEMP 36.4–37.1; O2SAT 94–100; BMI 24.3; BMI 25.0
--- NOTE | ~2021-11-29 | CT_ITS ---
EXAMINATION: CT ABDOMEN AND PELVIS WITHOUT CONTRAST CLINICAL INFORMATION: Worsening appendicitis. COMPARISON: CT abdomen and pelvis 11/21/2021. TECHNIQUE: Multidetector volumetric imaging was performed from the superior aspect of the liver through the pubic symphysis. Sagittal and coronal reformatted images were obtained on the technologist's workstation. This CT examination was performed using dose optimization techniques as appropriate, variously including the following: *Automated exposure control *Adjustment of mA and/or kV according to patient size (this includes techniques or standardized protocols for targeted exams where dose is matched to indication/reason for exam; i.e. extremities or head) *Use of iterative reconstruction technique DLP: 592 mGy-cm. FINDINGS: LUNG BASES: The visualized lung bases are unremarkable. LIVER, GALLBLADDER, AND BILIARY TREE: The liver is normal in size, shape, and attenuation. No focal hepatic lesion or biliary ductal dilatation is present. The gallbladder is unremarkable with no evidence of radiopaque gallstones, gallbladder wall thickening, or obvious pericholecystic inflammatory changes. PANCREAS: Unremarkable. SPLEEN: Unremarkable. ADRENAL GLANDS: Unremarkable. KIDNEYS AND URETERS: The kidneys are normal in size, shape, and attenuation. Again seen is a 3 mm right renal calculus with a smaller 1-2 mm punctate left renal calculus, both nonobstructing. A benign Bosniak class I cyst is present in the right kidney. No hydronephrosis, hydroureter, or ureteral calculi seen. No perinephric stranding. BLADDER: Unremarkable. GASTROINTESTINAL TRACT: Again seen is a dilated appendix measuring 1.4 cm in maximum diameter. Periappendiceal inflammatory changes are seen. Appearances are very similar to those detected on the 11/21/2021 study. No extraluminal air is seen. No periappendiceal drainable collections are present. The small and large bowel are unremarkable aside from scattered colonic diverticula without diverticulitis. ABDOMINAL WALL: No significant hernia is appreciated. LYMPH NODES: Normal. VASCULAR: Unremarkable. PELVIC VISCERA: Unremarkable. OSSEOUS STRUCTURES: Unremarkable. CT/CT abdomen pelvis wo con IMPRESSION: Findings of acute appendicitis with a 1.4 cm diameter appendix and periappendiceal inflammatory changes have not improved and appear similar to the prior exam. Fleischner guidelines were followed.
[2021-11-29 09:16] LABS: MANUAL DIFF FLAG NO
[2021-11-29 09:24] LABS: Basophils Percent Auto 0.6 % (0-2); Eosinophils Absolute Auto 0.1 X10*3/uL (0.0-0.4); Eosinophils Percent Auto 2.6 % (0-4); Hematocrit 40.6 % (42.0-52.0); Hemoglobin 13.8 g/dl (14.0-18.0); Imm Gran Abs Auto 0.02 X10*3/uL (0.00-0.03); Imm Gran Pct Auto 0.4 % (0.0-0.4); Lymphocytes Absolute Auto 1.5 X10*3/uL (1.2-4.9); Lymphocytes Percent Auto 27.4 % (20-40); Mean Corpuscular Hemoglobin 29.7 pg (27.0-33.0); Mean Corpuscular Volume 87.5 fL (80.0-98.0); Mean Platelet Volume 9.6 fL (9.4-12.4); Monocytes Absolute Auto 0.4 X10*3/uL (0.1-1.2); Monocytes Percent Auto 7.1 % (2-11); Neutrophils Absolute Auto 3.3 x10*3/uL (2.0-8.3); Neutrophils Percent Auto 61.9 % (45-73); Platelet Count 222 X10*3/uL (160-400); Red Blood Count 4.64 X10*6/uL (4.60-5.80); White Blood Count 5.3 X10*3/uL (4.8-10.8)
--- NOTE | 2021-11-29 09:32 | PC.NURSE ---
pt resting comfortably. awaiting md reeval.
[2021-11-29 09:37] LABS: Alanine Aminotransferase 16 U/L (0-40); Albumin Level 4.1 g/dL (3.5-5.0); Alkaline Phosphatase 71 U/L (39-117); Anion Gap 12 (12-20); Aspartate Amino Transferase 17 U/L (5-37); Bilirubin Total 0.6 mg/dL (0.0-1.0); Blood Urea Nitrogen 13 mg/dL (9-16); Calcium 9.4 mg/dL (8.4-10.2); Carbon Dioxide 29 mmol/L (22-29); Chloride 106 mmol/L (96-108); Creatinine Clr Calc Pharmacy 99.6; Estimated Glomerular Filt Rate > 60; Glucose Random 90 mg/dL (60-115); Potassium 4.6 mmol/L (3.3-5.1); Sodium 142 mmol/L (135-145); Total Protein 6.8 g/dL (6.5-8.0)
--- NOTE | 2021-11-29 09:37 | ED.ABDPAIN ---
HPI - Abdominal Pain General Chief Complaint: Abdominal Pain Stated Complaint: appendix surgery? Time Seen by Provider: 11/29/21 09:36 Source: patient and family ( Spouse) Mode of arrival: ambulatory Limitations: no limitations History of Present Illness HPI narrative: 46 years old male came in for evaluation of abdominal pain. Patient was seen last week for abdominal pain and was diagnosed by CT scan with acute appendicitis, patient was given surgical versus antibiotic option patient received Zosyn and was sent home on Augmentin, patient returned today for worsening of his symptoms and abdominal pain. Related Data Home Medications Medication Instructions Recorded Confirmed lamotrigine 25 mg tablet 2 tab PO DAILY 11/22/21 11/22/21 Previous Rx's Medication Instructions Recorded amoxicillin 875 mg-potassium 1 tab PO BID #14 tab 11/23/21 clavulanate 125 mg tablet Allergies Allergy/AdvReac Type Severity Reaction Status Date / Time No Known Allergies Allergy Verified 11/29/21 07:32 Review of Systems Review of Systems All other systems are reviewed and are negative Constitutional: Reports as per HPI and Reports no additional constitutional complaints Eyes: Reports as per HPI and Reports no additional eye complaints Reports system reviewed and no additional complaints, except as documented Cardiovascular: Reports as per HPI and Reports no additional cardiovascular complaints Respiratory: Reports as per HPI and Reports no additional respiratory complaints Gastrointestinal: Reports as per HPI and Reports no additional gastrointestinal complaints Genitourinary: Reports no additional female genitourinary complaints Musculoskeletal: Reports no additional musculoskeletal complaints Skin/Breast: Reports system reviewed and no additional complaints, except as docu Psychiatric: Reports no additional psychiatric complaints Endocrine: Reports no additional endocrine complaints Hematologic/Lymphatic: Reports no additional hematologic/lymphatic complaints Allergic/Immunologic: Reports no additional allergic/immunologic complaints Reports system reviewed and no additional complaints, except as documented and Reports Abnormal speech present [facility] Past Medical History Medical History History of depression No pertinent past medical history Social History Social History Household Members: Spouse Housing: House Do you presently have visiting nurse or other home services: No Patient Tobacco Use Status: Never used Tobacco Advance Directives: No service: No Current occupational status: unemployed Physical Exam ED Vital Signs: Vital Signs - 24 hr 11/29/21 07:33 11/29/21 09:31 Temperature 98.6 F 97.8 F Pulse Rate 60 57 Respiratory Rate 18 16 Blood Pressure 106/60 111/70 Pulse Oximetry 98 100 BMI result Body Mass Index 24.3 vital signs have been reviewed as appeared to be correct. Blood pressure normal. Heart rate normal. Respiration rate normal. Temperature normal. Oxygen saturation normal. Appearance: Alert. Oriented X3. No acute distress. Head: Normal external exam. Normocephalic. Atraumatic. No [place] signs noted. No raccoon eyes noted Eyes: PERRLA. EOMI. Conjunctiva and sclera normal. Eyelids normal. ENT: TM's Normal. Pharynx normal. Uvula midline. Moist mucous membranes. No trismus noted. No drooling noted. No muffled voice noted. Neck: Normal inspection. Neck supple. FROM. No adenopathy. Thyroid Normal. No meningeal signs. No neck mass noted. CVS: Normal heart rate and rhythm. Heart sound normal. No murmurs noted. Pulses normal throughout. Respiratory: No respiratory distress. Painless inspiration. Breath sounds normal. No wheezes/rales/rhonchi noted. Chest nontender. No accessory muscle usage noted or decreased air movement noted. Abdomen: Soft , right lower quadrant tenderness, no rebound tenderness, no guarding. Back: No CVA tenderness. Full range of motion noted. Skin: Skin warm and dry. Normal skin color. Normal skin turgor. No rashes/lesions/lacerations noted. Extremities: No lower extremity edema. Extremities exhibit normal range of motion. Extremities nontender. Neuro: Oriented X 3. Cranial nerve exam: II-XII are grossly intact No motor deficit. No sensory deficit. Reflexes normal. Course Course Course Narrative: Assessment and plan. 46-year-old male with acute appendicitis a trial to treat with IV/ p.o. antibiotic, patient return for worsening of his symptoms, CT confirming no improvement of acute appendicitis.. Case was discussed with Dr. Garcia and to admit the patient for further management. MDM - Abdominal Pain Medical Records Attestation: I reviewed the patient's medical records. Lab Data Attestation: I reviewed the patient's lab results. Result diagrams: 11/29/21 09:09 11/29/21 09:09 Labs: Lab Results 11/29/21 Range/Units 09:09 WBC 5.3 (4.8-10.8) X10*3/uL RBC 4.64 (4.60-5.80) X10*6/uL Hgb 13.8 L (14.0-18.0) g/dl Hct 40.6 L (42.0-52.0) % MCV 87.5 (80.0-98.0) fL MCH 29.7 (27.0-33.0) pg MCHC 34.0 (31.0-36.0) g/dl RDW 12.0 (11.0-16.0) % Plt Count 222 (160-400) X10*3/uL MPV 9.6 (9.4-12.4) fL Immature Gran % (Auto) 0.4 (0.0-0.4) % Neut % (Auto) 61.9 (45-73) % Lymph % (Auto) 27.4 (20-40) % [place] % (Auto) 7.1 (2-11) % Eos % (Auto) 2.6 (0-4) % Baso % (Auto) 0.6 (0-2) % Lymph # (Auto) 1.5 (1.2-4.9) X10*3/uL [place] # (Auto) 0.4 (0.1-1.2) X10*3/uL Eos # (Auto) 0.1 (0.0-0.4) X10*3/uL Baso # (Auto) 0.0 (0.0-0.2) X10*3/uL Abs Immat Gran (auto) 0.02 (0.00-0.03) X10*3/uL Absolute Neuts (auto) 3.3 (2.0-8.3) x10*3/uL Absolute Nucleated RBC 0.000 (0.0-0.012) X10*3/uL Nucleated RBC % (auto) 0.0 (0.0-0.2) /100WBC Imaging Data CT scan - abdomen: Attestation: I personally reviewed and interpreted this imaging study as follows: Radiologist's impression: Findings of acute appendicitis with a 1.4 cm diameter appendix and periappendiceal inflammatory changes have not improved and appear similar to the prior exam. Discharge Plan Discharge Clinical Impression: Abdominal pain, Acute appendicitis Patient Disposition: Admitted As Inpatient Prescriptions: No Action lamotrigine 25 mg tablet 2 tab PO DAILY 0RF amoxicillin-pot clavulanate 875-125 mg tablet 1 tab PO BID Qty: 14 0RF
--- NOTE | 2021-11-29 09:52 | PM.HPGS ---
History of Present Illness History of Present Illness Date of Service: 11/29/21 Chief complaint: appendix surgery? Narrative: Jabier Matos III is a 46 year old male presenting with complaints of abdominal pain in the right lower quadrant beginning last evening increasing in severity throughout the night. He has a previous history of acute appendicitis treated non operatively last week with IV antibiotics. His pain quickly improved and was subsequently discharged to home. He reports feeling great for the last several days until last evening when the pain began in the right lower quadrant. He denies nausea, vomiting, fever, or chills. He presented to the emergency department and was found to have a normal WBC. To the abdomen revealed a enlarged appendix measuring 1.4 cm with periappendiceal inflammation suggestive of acute appendicitis. He is admitted to the surgical service for further management of acute appendicitis. Review of Systems Constitutional: Constitutional: Denies chills and Denies fever(s) Cardiovascular: Cardiovascular: Denies chest pain, Denies dyspnea and Denies dyspnea on exertion Respiratory: Respiratory: Denies cough, Denies dyspnea and Denies dyspnea on exertion Gastrointestinal: Gastrointestinal: Denies hematochezia and Denies change in bowel habits Genitourinary: Genitourinary: Denies hematuria and Denies difficulty urinating Musculoskeletal: Musculoskeletal: Denies back pain and Denies limited range of motion Neurologic: Denies focal weakness and Denies convulsions Psychiatric: Psychiatric: Denies depression and Denies mood swings PMFSH Past Medical History Medical History History of depression No pertinent past medical history Social History Social History Household Members: Spouse Housing: House Do you presently have visiting nurse or other home services: No Patient Tobacco Use Status: Never used Tobacco Advance Directives: No service: No Current occupational status: unemployed Meds Allergies Allergy/AdvReac Type Severity Reaction Status Date / Time No Known Allergies Allergy Verified 11/29/21 07:32 Home Medications Medication Instructions Recorded Confirmed Last Taken Type lamotrigine 25 mg tablet 2 tab PO DAILY 11/22/21 11/22/21 Unknown History Physical Exam Vital Signs: Vital Signs: Last Vital Signs Temp 97.8 F 11/29/21 09:31 Pulse 57 11/29/21 09:31 Resp 16 11/29/21 09:31 BP 111/70 11/29/21 09:31 Pulse Ox 100 11/29/21 09:31 BMI result Body Mass Index 24.3 Const: General: no acute distress and well developed Nutritional Appearance: well nourished Orientation/consciousness: patient oriented x3 Limitations: no limitations Resp: Effort & Inspection: normal respiratory effort, no audible wheezes, no cough and no respiratory distress GI: Inspection: Yes normal to inspection Palpation (GI): Soft to palpation, Tenderness to palpation present (GI) in the RLQ and at McBurney's point, no guarding, not rigid and No hepatosplenomegaly present Percussion: Yes normal to percussion Auscultation: normal bowel sounds Rectal Exam - Male: Yes deferred Skin: General skin exam: no rashes or lesions noted Neuro: General: patient oriented x3 Extrem: General: Yes no clubbing, cyanosis or edema Results Results Labs: Short CBC 11/29/21 Range/Units 09:09 WBC 5.3 (4.8-10.8) X10*3/uL Hgb 13.8 L (14.0-18.0) g/dl Hct 40.6 L (42.0-52.0) % Plt Count 222 (160-400) X10*3/uL BMP 11/29/21 09:09 Sodium 142 Potassium 4.6 Chloride 106 Carbon Dioxide 29 BUN 13 Creatinine 1.10 Calcium 9.4 Liver Function 11/29/21 Range/Units 09:09 Total Bilirubin 0.6 (0.0-1.0) mg/dL AST 17 D (5-37) U/L ALT 16 (0-40) U/L Alkaline Phosphatase 71 (39-117) U/L Albumin 4.1 (3.5-5.0) g/dL Assessment and Plan (1) Acute appendicitis: Status: Acute Plan 46-year-old male patient presenting with complaints of recurrent right lower quadrant abdominal pain. He previously was diagnosed with acute appendicitis, early, and treated with IV antibiotics. He had resolution of his symptoms until yesterday when the symptoms returned. Presents today with pain in the right lower quadrant similar to his previous episode. CT of the abdomen and pelvis revealed a 1.4 cm appendix with periappendiceal inflammation suggestive of acute appendicitis. On examination the patient is tender in the right lower quadrant over McBurney's point suggestive of acute appendicitis. As this is a recurrent episode I recommended a laparoscopic appendectomy. After discussion of the procedure, risks, and alternatives, he consents to the laparoscopic or possible open appendectomy. He has been added onto the operative schedule for today. Quality Stroke Does the patient have a stroke diagnosis?: No VTE Prior VTE?: No VTE Risk Level:: Surgical - low VTE Device Contraindication: N/A - Device Ordered VTE Drug Contraindication: Treatment Not Indicated Procedures Date of Service Date of Service: 11/29/21
--- NOTE | 2021-11-29 11:08 | PHA.MEDREC ---
Pharmacy Consult ? Medication Reconciliation Pharmacy has completed the medication reconciliation. There are no remarkable issues for provider's attention. Hien cMcarthy, TiaraD
[2021-11-29 11:27] LABS: COVID-19 Test Negative (Negative)
[2021-11-29] MEDS: Lactated Ringers 1,000 ML 100 ML IVCONT (11:37)
[2021-11-29] MEDS: Lactated Ringers 1,000 ML 80 ML IVCONT (12:07)
--- NOTE | 2021-11-29 12:09 | HO.ANESPROP2 ---
HPI - Anesthesia Eval Consult details Narrative: 46 M for appendectomy Hx of depression , on lamotrigine PMFSH Active Problems Active Problems: All Active Problems (Updated 11/29/21 @ 09:42 by Saul Wasserman MD) Abdominal pain (Acute) Acute appendicitis (Acute) History of depression (Acute) Past Medical History Medical History (Updated 11/29/21 @ 09:42 by Saul Wasserman MD) History of depression No pertinent past medical history Functional capacity: independent ambulation Family History Family history of problems with anesthesia: No Surgical History Surgical History (Updated 11/29/21 @ 12:47 by Velma Simpson RN) H/O lithotripsy History of Problems with Anesthesia: No Social History Social History Household Members: Spouse Housing: House Do you presently have visiting nurse or other home services: No Patient Tobacco Use Status: Former Tobacco user Tobacco use type: Cigarette Smoked in Last 30 Days: No Use of substances other than those prescribed or required for medical reasons: No Are you DNR?: No Advance Directives: No Recently lost weight without trying: No Nutrition Risks: No Nutritional Risk service: No Current occupational status: unemployed Meds Allergies Allergy/AdvReac Type Severity Reaction Status Date / Time No Known Allergies Allergy Verified 11/29/21 07:32 Active Medications: Current Medications Lactated Ringer's (Lr) 1,000 mls @ 100 mls/hr IVCONT .Q10H KALYANI Last Admin: 11/29/21 11:37 Dose: 100 mls/hr Documented by: Ondansetron HCl (Ondansetron Hcl 4 Mg/2 Ml Vial) 4 mg IVPUSH QID PRN PRN Reason: Nausea Pharmacy Consult (Consult Rx Perform Med Rec) 1 each MISCELLANE ONCE PRN PRN Reason: Consult order Home Medications Medication Instructions Recorded Confirmed Last Taken Type lamotrigine 25 mg tablet 2 tab PO DAILY 11/22/21 11/29/21 11/29/21 History multivitamin 1 tab PO DAILY 11/29/21 11/29/21 11/28/21 History Exam Exam Date and Time: November 29, 2021 1209 Height,Weight and Vital Signs: Height 6 ft 2 in Weight 88.451 kg Last Vital Signs Temp 97.9 F 11/29/21 12:04 Pulse 61 11/29/21 12:04 Resp 16 11/29/21 12:04 BP 104/65 11/29/21 12:04 Pulse Ox 99 11/29/21 12:04 Pertinent Lab Results Pertinent Lab Results: Laboratory Tests 11/29/21 11/29/21 11/29/21 09:09 09:09 10:22 WBC 5.3 RBC 4.64 Hgb 13.8 L Hct 40.6 L MCV 87.5 MCH 29.7 MCHC 34.0 RDW 12.0 Plt Count 222 MPV 9.6 Immature Gran % (Auto) 0.4 Neut % (Auto) 61.9 Lymph % (Auto) 27.4 [place] % (Auto) 7.1 Eos % (Auto) 2.6 Baso % (Auto) 0.6 Lymph # (Auto) 1.5 [place] # (Auto) 0.4 Eos # (Auto) 0.1 Baso # (Auto) 0.0 Abs Immat Gran (auto) 0.02 Absolute Neuts (auto) 3.3 Absolute Nucleated RBC 0.000 Nucleated RBC % (auto) 0.0 Sodium 142 Potassium 4.6 Chloride 106 Carbon Dioxide 29 Anion Gap 12 BUN 13 Creatinine 1.10 Estim Creat Clear Calc 99.6 Estimated GFR > 60 Random Glucose 90 Calcium 9.4 Total Bilirubin 0.6 AST 17 D ALT 16 Alkaline Phosphatase 71 Total Protein 6.8 Albumin 4.1 COVID-19 (MARIA L) Cancelled COVID-19 Clin Com Cancelled 11/29/21 11:02 WBC RBC Hgb Hct MCV MCH MCHC RDW Plt Count MPV Immature Gran % (Auto) Neut % (Auto) Lymph % (Auto) [place] % (Auto) Eos % (Auto) Baso % (Auto) Lymph # (Auto) [place] # (Auto) Eos # (Auto) Baso # (Auto) Abs Immat Gran (auto) Absolute Neuts (auto) Absolute Nucleated RBC Nucleated RBC % (auto) Sodium Potassium Chloride Carbon Dioxide Anion Gap BUN Creatinine Estim Creat Clear Calc Estimated GFR Random Glucose Calcium Total Bilirubin AST ALT Alkaline Phosphatase Total Protein Albumin COVID-19 (MARIA L) Negative COVID-19 Clin Com See Note Airway Mallampati Class: III TM Dist: >3cm Neck ROM: Full Loose/Missing/Broken Teeth: Yes (Chipped teeth ) Heart: S1 , S2 Lungs: b/l breath sounds Assessment and Plan Assessment Anesthesia Assessment: Anesthesia Plan Discussed and Chart Reviewed Final Anesthetic Review Family History of Problems with Anesthesia: No History of Problems with Anesthesia: No NPO: Yes ASA Class: II Final Preanesthetic Review: Meds/Allgs Chart Reviewed, Consent Obtained/Reviewed and Anes Risks/Benef Reviewed Patient Risk: Intermediate Procedure Risk: Intermediate Anesthetic Plan Anesthetic Plan: GA Disposition: Standard PACU
--- NOTE | 2021-11-29 14:16 | W.PM.OPN ---
Operative Note Operative Note Date of Service: 11/29/21 Narrative: Preoperative diagnosis: Acute appendicitis Postoperative diagnosis: Same Procedure: Laparoscopic appendectomy Surgeon: Jerome Garcia MD Orthotics Technician:none Anesthesia: General endotracheal Indications for procedure:46 year old male patient with complaints of abdominal pain in the right lower quadrant found to have recurrent appendicitis, previously treated non-operatively Operative findings:Acute appendicitis without abscess Specimen:appendix Estimated blood loss:5 mls Complications: none Procedure details: Patient was brought to the OR and placed in a supine position. After administering general anesthesia the patient's abdomen was prepped with ChloraPrep and draped in a sterile fashion. A surgical time-out was called and consent confirmed. Patient received preoperative antibiotics and Venodyne boots were in place. Local anesthesia consisting of 0.25% Sensorcaine with epinephrine was infiltrated in periumbilical region. A 5 mm incision was made below the umbilicus and carried down through subcutaneous tissue. A Veress needle was then inserted while elevating abdominal cavity with towel clips. After a positive drop test the abdomen was insufflated to a pressure of 15 mm of mercury. The Veress needle was removed and a 5 mm trocar inserted. The camera was then inserted in the abdomen explored. A 2nd 5 mm trocars placed in the lower midline. A 12 mm trocar was then placed in the left lower quadrant. The patient was then placed in a Trendelenburg position and rotated to the left. The appendix was identified in the right lower quadrant and brought up using blunt dissecting clamps. The mesentery of the appendix was then divided using the LigaSure. The appendiceal artery was cauterized and divided using the LigaSure. Dissection was continued down to the base of the cecum. An Endo-MURIEL stapler with a purple reload was then used to divide the appendix at the base with the cecum. The appendix was then placed in Endo-Catch bag and brought out through the left lower quadrant incision. The abdomen was then irrigated with saline solution and suctioned dry. Wounds were checked for hemostasis. CO2 was then evacuated from the abdominal cavity and all trocars removed. Fascia was closed in the left lower quadrant incision using a [id number] 0 Polysorb suture. Skin was closed at all incisions using a subcuticular 4-0 Polysorb suture. Steri-Strips 2 x 2 gauze and Tegaderm were then applied. The patient tolerated the procedure well. Sponge, instrument, needle counts reported as correct. The patient was transferred to PACU in stable condition.
[2021-11-29] MEDS: HYDROmorphone HCl 0.5 MG/0.5 ML SYRINGE 0.25 MG IVPUSH ×2 (15:15→16:49)
[2021-11-29] MEDS: ondansetron HCL 4 MG/2 ML VIAL IVPUSH (15:15)
[2021-11-29] MEDS: Dextrose 5 % and Lactated Ring 1,000 ML 125 ML IVCONT (16:51)
--- NOTE | 2021-11-29 19:40 | PC.NURSE ---
pt arrived via stretcher from recovery, s/p lap appy. VSS. pt amb to BR for void 360 cc. crackers consumed without pain or nausea. dsgs intact. moderate drainage to umb site. scant drainage to sub umb site. remaining site CDI.
[2021-11-29] MEDS: oxyCODONE HCl Immed Release 5 MG TABLET PO (22:12)
[2021-11-30] VITALS: BP 110/58; PULSE 60; RESP 17; TEMP 36.1; O2SAT 97
[2021-11-30] MEDS: Dextrose 5 % and Lactated Ring 1,000 ML 125 ML IVCONT (00:14)
[2021-11-30 04:00] VITALS: BP 100/54; PULSE 57; RESP 18; TEMP 36.7; O2SAT 98
--- NOTE | 2021-11-30 06:59 | HO.POSTANES ---
Post Anesthesia Evaluation Post Anesthesia Evaluation Vital Signs: Vital Signs Temp Pulse Resp BP Pulse Ox 11/30/21 04:00 98.1 F 57 18 100/54 L 98 11/30/21 00:00 97.0 F 60 17 110/58 L 97 11/29/21 20:00 97.8 F 78 18 120/71 99 Anesthesia: General Endotracheal-GETA Mental Status: Awake Pain Control: Satisfactory Nausea/Vomiting: None Hydration: Adequate Anesthesia-Related Issues: No Anes. Related Issues
--- NOTE | 2021-11-30 07:38 | P.DS_ITS ---
DS: Providers Provider Date of Service: 11/30/21 Date of discharge: 11/30/21 Primary care physician: Jordan Pierce MD Admitting clinician: Jerome Garcia Discharging clinician: Jerome Garcia DS: Diagnosis Discharge Diagnosis (1) Acute appendicitis: Status: Acute DS: Summary Hospital Course Hospital Course: Jabier Matos III is a 46 year old male presenting with complaints of abdominal pain in the right lower quadrant beginning last evening increasing in severity throughout the night.? He has a previous history of acute appendicitis treated non operatively last week with IV antibiotics.? His pain quickly improved and was subsequently discharged to home.? He reports feeling great for the last several days until last evening when the pain began in the right lower quadrant.? He denies nausea, vomiting, fever, or chills.? He presented to the emergency department and was found to have a normal WBC.? To the abdomen revealed a enlarged appendix measuring 1.4 cm with periappendiceal inflammation suggestive of acute appendicitis.? He is admitted to the surgical service for further management of acute appendicitis. He was taken to the OR on the day of admission for a laparoscopic appendectomy. Operative findings were consistent with acute appendicitis. He tolerated the procedure well and was placed as an extended recovery. On POD#1 reported some mild incisional pain but denies nausea, vomiting, fever or chills. He tolerated his diet yesterday and felt ready for discharge to home. Patient is discharged to home on 11/30/2021. He will follow up in the office in one week. He should call for increased abdominal pain, nausea, vomiting, fever, chills, or other associated symptoms. Time spent discussing smoking cessation with patient: 3 to 10 minutes Status at Discharge Functional status at discharge: independent ambulation Overall status at discharge: patient is back to baseline Time Spent with Patient Time attestation: Total time spent providing and/or coordinating discharge services: Discharge coordination time: Less than 30 minutes Quality: Safe Use of Opioids Does Pt have an Active Cancer Diagnosis on the Problem List?: No Quality: Stroke Does the patient have a stroke diagnosis?: No Physical Exam Vital Signs: Vital Signs: Last Vital Signs Temp 98.1 F 11/30/21 04:00 Pulse 57 11/30/21 04:00 Resp 18 11/30/21 04:00 BP 100/54 L 11/30/21 04:00 Pulse Ox 98 11/30/21 04:00 BMI result Body Mass Index 25.0 Const: General: cooperative, comfortable and no acute distress Nutritional Appearance: average body habitus Orientation/consciousness: patient oriented x3 Limitations: no limitations HEENT: Head: Yes normocephalic and Yes atraumatic Resp: Effort & Inspection: normal respiratory effort and no respiratory distress GI: Other: incisions clean and intact, small amount of bloody discharge on umbilical incision. Inspection: Yes normal to inspection Skin: General skin exam: no rashes or lesions noted Neuro: General: patient oriented x3 Extrem: General: Yes no pedal edema DS: Data Data Completed and Pending Pending studies at discharge: Pending at discharge 11/29/21 13:52 Surgical [PTH] Routine Labs on day of discharge: Laboratory Results - last 24 hr 11/29/21 11/29/21 11/29/21 09:09 09:09 10:22 WBC 5.3 RBC 4.64 Hgb 13.8 L Hct 40.6 L MCV 87.5 MCH 29.7 MCHC 34.0 RDW 12.0 Plt Count 222 MPV 9.6 Immature Gran % (Auto) 0.4 Neut % (Auto) 61.9 Lymph % (Auto) 27.4 [place] % (Auto) 7.1 Eos % (Auto) 2.6 Baso % (Auto) 0.6 Lymph # (Auto) 1.5 [place] # (Auto) 0.4 Eos # (Auto) 0.1 Baso # (Auto) 0.0 Abs Immat Gran (auto) 0.02 Absolute Neuts (auto) 3.3 Absolute Nucleated RBC 0.000 Nucleated RBC % (auto) 0.0 Sodium 142 Potassium 4.6 Chloride 106 Carbon Dioxide 29 Anion Gap 12 BUN 13 Creatinine 1.10 Estim Creat Clear Calc 99.6 Estimated GFR > 60 Random Glucose 90 Calcium 9.4 Total Bilirubin 0.6 AST 17 D ALT 16 Alkaline Phosphatase 71 Total Protein 6.8 Albumin 4.1 COVID-19 (MARIA L) Cancelled COVID-19 Clin Com Cancelled 11/29/21 11:02 WBC RBC Hgb Hct MCV MCH MCHC RDW Plt Count MPV Immature Gran % (Auto) Neut % (Auto) Lymph % (Auto) [place] % (Auto) Eos % (Auto) Baso % (Auto) Lymph # (Auto) [place] # (Auto) Eos # (Auto) Baso # (Auto) Abs Immat Gran (auto) Absolute Neuts (auto) Absolute Nucleated RBC Nucleated RBC % (auto) Sodium Potassium Chloride Carbon Dioxide Anion Gap BUN Creatinine Estim Creat Clear Calc Estimated GFR Random Glucose Calcium Total Bilirubin AST ALT Alkaline Phosphatase Total Protein Albumin COVID-19 (MARIA L) Negative COVID-19 Clin Com See Note Discharge Plan Discharge Patient Disposition: Home, Self-Care Referrals: Jerome Garcia MD [Physician] - 1 Week Jordan Pierce MD [Primary Care Provider] - 1 Week Discharge Medications: New oxycodone-acetaminophen [Endocet] 5-325 mg tablet 1 tab PO Q6H PRN (Reason: pain (scale score 7-10)) Qty: 14 0RF Continued lamotrigine 25 mg tablet 2 tab PO DAILY 0RF multivitamin Tablet 1 tab PO DAILY 0RF Discharge Orders: Discharge Order (Routine); Ordered 11/30/21 Ordered By: Jerome Garcia Patient Instructions: Laparoscopic Appendectomy (DC) Activity Restrictions/Additional Instructions: No lifting > 10 pounds for 2 weeks No driving for one week Ice to the incision x 24 hours Remove dressing in 3 days Follow up in office in one week.
[2021-11-30 08:00] VITALS: BP 102/61; PULSE 58; RESP 18; TEMP 36.8; O2SAT 96
[2021-11-30] MEDS: lamoTRIgine 25 MG TABLET 50 MG PO (09:59)
== END 2021-11-30 12:14 | disposition home or self-care (01) ==
LOC: HO.ED 10:00 → HO.SSS 10:22 → HO.S3 16:02
PROVIDERS: Emergency Provider Emergency Medicine; PCP Internal Medicine; Visit Provider Surgery
PROC: 0DTJ4ZZ Resection of Appendix, Percutaneous Endoscopic Approach (ICD-10-PCS; CPT 44970; principal; 2021-11-29 12:00)
DX: K35.80 Unspecified acute appendicitis (principal); K38.2 Diverticulum of appendix; K66.0 Peritoneal adhesions (postprocedural) (postinfection); Z79.899 Other long term (current) drug therapy; Z87.442 Personal history of urinary calculi; Z87.891 Personal history of nicotine dependence; Z20.822 Contact with and (suspected) exposure to COVID-19
CPT/HCPCS: 44970; 36415; 74176; 80053; 85025; 87635; 88304; 99285; J1100; J1170; J1885; J2250; J2405; J3010

== ENCOUNTER → 2021-12-11 10:14 | Outpatient (BNVA) | payer BC, SELFPAY | PROVIDERS: PCP Internal Medicine; Visit Provider Surgery | DX: K35.30 Acute appendicitis with localized peritonitis, without perforation or gangrene (principal) ==

== ENCOUNTER 2022-04-24 08:33 | Outpatient (REF) | payer BC, SELFPAY ==
--- NOTE | ~2022-04-24 | XR_ITS ---
EXAMINATION: XR HAND, RIGHT CLINICAL INFORMATION: Pain COMPARISON: None TECHNIQUE: PA, lateral, and oblique views of the right hand. FINDINGS: Bone alignment is normal. No fracture or dislocation. There is a small cyst in the distal ulna. Normal joint spaces. Normal soft tissues. XR/XR hand RT min 3V IMPRESSION: Small cyst in the distal ulna. Otherwise unremarkable exam.
== END 2022-04-24 08:34 | disposition home or self-care (01) ==
LOC: HO.HOSX 08:33
PROVIDERS: Visit Provider Orthopaedic Surgery
DX: M79.641 Pain in right hand (principal)
CPT/HCPCS: 73130

== ENCOUNTER 2022-06-24 11:33 | Day surgery (SDC) | payer BC, SELFPAY ==
[2022-06-24 11:43] VITALS: BMI 25.7
--- NOTE | 2022-06-24 12:52 | MHC.SHP ---
Pre-Procedural Eval Section A Date of Service: 06/24/22 The patient is an INPATIENT: No Changes since office visit: No Cold of Flu in the past 2 weeks, No New Medical Problems, No Changes in Medication and No Patient answered all questions The History & Physical has been completed within 30 days and I have reviewed it.: Yes Section B Chief Complaint: foreign body of right ring finger, ini Allergies: Allergies Allergy/AdvReac Type Severity Reaction Status Date / Time No Known Allergies Allergy Verified 04/24/22 08:47 Plan I have reviewed the history and physical and performed a pertinent physical examination on my patient. No changes have occurred unless specified. Time Spent With Patient Time: Total time managing care of this patient today ____ minutes.
--- NOTE | 2022-06-24 12:53 | P.OP_ITS ---
Operative Note Operative Note Date of Service: 06/24/22 Narrative: Operative Note Preop diagnosis: 1. Right ring finger foreign body Postop diagnosis: same Procedure: 1. Right ring finger removal of foreign body. Surgeon: Dhara Chapin MD Anesthesia: digital block using 1% lidocaine with epinephrine Findings: A 1.2 cm x 2 mm diameter piece of wood was removed from the volar aspect of his right ring finger. It was deep to the neurovascular bundle on the radial side, and superficial to the flexor tendons.. There was also a somewhat viscous cloudy fluid that was released at the time we dissected down to the splinter. It was not exactly purulent. Still, I took cultures. EBL: Less than 5 mL Tourniquet time: None Specimens: Cultures Complications: None Disposition: Brought to recovery room in stable condition Plan: Follow-up for 7-10 days for wound check and suture removal and to check cultures I did not place him on antibiotics, but did instruct him in signs and symptoms of infection. Should this occur he knows to contact our clinic immediately. 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 The risks and benefits of operative treatment including but not limited to risk of damage to blood vessels, nerves, tendons, infection, persistent pain, persistent symptoms, recurrence or possible need for additional surgery were discussed with the patient and the patient wishes to pr oceed with surgery. Procedure: Once consent was obtained a digital block was performed in the preop area using a combination of 1% lidocaine with epinephrine. The patient was then brought back to the operating suite and placed on the operative table in supine position. The right upper extremity and the limb was prepped and draped in a standard surgical fashion. Once assured that we had a good block, an oblique incision was made over the volar radial aspect of the right ring finger at the middle phalanx level. This was done at the site where the foreign body was most prominent when pressure was applied to the opposite side. Incision was made through the skin to the subcutaneous tissues using a 15. Blade. I then carefully dissected down through the soft tissues with care being taken about the neurovascular bundle on the radial aspect of the finger. Once we got to the foreign body there was a flush of cloudy viscous fluid. Cultures were taken. Foreign body was then removed and found to be a 1.2 cm long piece of wood that measured about 2 mm in diameter. At this point the wound was copiously irrigated with normal saline. I also used an Angiocath with a 10 mL syringe to facilitate our irrigation of the small site. Hemostasis was obtained with a brief period of local pressure. The skin edges were reapproximated with a single 5 0 Prolene suture to allow for any drainage, and a sterile dressing was applied. The patient appears to have tolerated the procedure well and with no complications. All digits were well vascularized at the conclusion of the case.
[2022-06-24 13:15] VITALS: BP 99/60; PULSE 69; RESP 16; O2SAT 97
== END 2022-06-24 13:31 | disposition home or self-care (01) ==
PROVIDERS: PCP Internal Medicine; Visit Provider Orthopaedic Surgery
PROC: (CPT 10121; principal; 2022-06-24 13:30)
DX: S60.454A Superficial foreign body of right ring finger, initial encounter (principal); X58.XXXA Exposure to other specified factors, initial encounter; Y93.H3 Activity, building and construction; Y92.9 Unspecified place or not applicable; Y99.0 Civilian activity done for income or pay; Z87.891 Personal history of nicotine dependence
CPT/HCPCS: 10121; 87070; 87205; J0171

== ENCOUNTER → 2022-07-09 12:28 | Outpatient (BNVA) | payer BC, SELFPAY | PROVIDERS: PCP Internal Medicine; Visit Provider Orthopaedic Surgery | DX: S60.454A Superficial foreign body of right ring finger, initial encounter (principal) ==

== ENCOUNTER 2022-12-24 15:38 | Emergency (ER) | payer BC, SELFPAY ==
--- NOTE | ~2022-12-24 | XR_ITS ---
EXAMINATION: XR CHEST CLINICAL INFORMATION: Chest pain. COMPARISON: Chest x-ray 10/05/2015. TECHNIQUE: 2 views of the chest were obtained. FINDINGS: No significant abnormality is noted involving the heart, lungs, mediastinum, bony thorax or soft tissues. XR/XR chest 2V IMPRESSION: Unremarkable examination.
[2022-12-24 15:40] VITALS: BP 123/72; PULSE 57; RESP 18; TEMP 36.2; O2SAT 99; BMI 25.0
--- NOTE | 2022-12-24 15:41 | ED_ITS ---
HPI - General Adult General Chief complaint: Chest Pain Stated complaint: Chest pain/Tingling on L arm and face Time Seen by Provider: 12/24/22 17:35 Source: patient Mode of arrival: ambulatory Limitations: no limitations History of Present Illness HPI narrative: Patient is a 47-year-old male presents emergency department for evaluation of chest pain. He reports earlier today onset at 1100; sudden onset of left anterior chest pain described as a tightness in associated tingling sensation to the left side of his face and left arm. He was walking around the apartment to light cleaning he sat down and his symptoms did not improve. He took 3 Advil and reports after approximately 30 minutes improvement in his chest pain. Currently he remains without chest pain, and states that the tingling sensation to the left side of the face and arm has resolved. He contacted his primary care doctor prior to coming to the emergency department in was advised to present here. He reports no pertinent past medical history. Denies headache, dizziness, lightheadedness, vision changes, neck pain, neck stiffness, jaw pain, shortness of breath, difficulty breathing, cough, recent URI symptoms, nausea, vomiting, abdominal pain, weakness. Related Data Home Medications Medication Instructions Recorded Confirmed lamotrigine 25 mg tablet 2 tab PO DAILY 11/22/21 06/24/22 multivitamin 1 tab PO DAILY 11/29/21 06/24/22 Previous Rx's Medication Instructions Recorded hydrocodone 5 mg-acetaminophen 325 1 tab PO Q4-6H PRN pain #5 tabs 06/24/22 mg tablet Allergies Allergy/AdvReac Type Severity Reaction Status Date / Time No Known Allergies Allergy Verified 07/09/22 12:40 Review of Systems Review of Systems: Yes all other systems are reviewed and are negative [facility] Past Medical History Attestation statement: The following information was validated with the patient. Source: old records reviewed Medical History Acute appendicitis History of depression No pertinent past medical history Surgical History H/O lithotripsy History of laparoscopic appendectomy (11/29/21) Social History Social History Household Members: Spouse Housing: House Do you presently have visiting nurse or other home services: No Patient Tobacco Use Status: Former Tobacco user Tobacco use type: Cigarette Second Hand Smoke Exposure: No Advance Directives: No Advance Directives Information Provided: No service: No Current occupational status: unemployed Current occupation: silverman/rt hand Physical Exam ED Vital Signs: Vital Signs - 24 hr 12/24/22 15:40 12/24/22 18:12 12/24/22 18:15 Temperature 97.2 F 97.8 F Pulse Rate 57 54 52 Respiratory Rate 18 12 12 Blood Pressure 123/72 98/59 L 95/62 Pulse Oximetry 99 98 98 Oxygen Delivery Method Room Air Room Air Room Air 12/24/22 20:11 Temperature 98.6 F Pulse Rate 54 Respiratory Rate 16 Blood Pressure 102/62 Pulse Oximetry 98 Oxygen Delivery Method Room Air BMI result Body Mass Index 25.0 Vital signs have been reviewed and appeared to be correct. Blood pressure normal.? Bradycardia? Respiration rate normal. Temperature normal.? Oxygen saturation normal. Const Other: Appearance: Alert.?Oriented to person, place and time. No acute distress.?Normal affect. Eyes: Pupils equal, round and reactive to light.? ENT: Pharynx normal.?? Neck: Normal inspection.? Neck supple.?? CVS: Heart sounds normal. Normal heart rate and rhythm.? Pulses normal.?? Respiratory: No respiratory distress.? Lung sounds clear to auscultation bilaterally?? Abdomen: Soft and non-tender. Normoactive bowel sounds. No pulsatile mass.?? Skin: Skin warm and dry.? Normal skin color.? Extremities: No lower extremity edema.? No calf ttp? Neuro: Moves all extremities spontaneously. Sensation intact bilaterally. CN II- XII intact. No focal neuro deficits. Ambulates with normal steady gait. Course Course Course Narrative: RME- 47-year-old male presents for evaluation chest pain with numbness and tingling in both arms. His pain also radiates into his back. Symptoms started earlier today. Plan for EKG, labs Reevaluation(s) Reevaluation #1: Chest x-ray is unremarkable for acute abnormalities. Delta troponin within normal limits. Not consistent with ACS. Remains without symptoms at this time. Atypical chest pain. Patient stable for discharge. Recommended outpatient follow-up with PCP. Return to emergency department for worrisome signs and symptoms. All questions answered. Time: 21:14 Medical Decision Making Medical Decision Making [facility] Narrative: Patient is a 47 year male past medical history of depression presenting to emergency department for evaluation of chest pain as noted in HPI. During rapid medical examination patient had reported pain radiating into the back, however at the time of my examination he denies pain ever having radiated into his back and affirms at this time that there is no radiation of pain, in fact his chest pain has resolved. Reviewed initial serum labs obtained from triage; CBC is overall unremarkable, CMP unremarkable. High sensitive troponin <2.7, EKG without acute ischemic findings; no STEMI, sinus bradycardia is noted. Mild hypotension 95/62, asymptomatic. PERC negative unlikely PE/ DVT. HEART score 1 due to age, low risk. There are no focal neurological deficits. He denies any family history of sudden or cardiac event at a young age. Will obtain delta troponin and chest x-ray for further evaluation, if unremarkable plan for discharge home. Differential Diagnosis Differential Diagnoses: The differential diagnosis associated with the presentation includes ACS, atypical chest pain, STEMI, PE, pneumonia, pneumothorax, GERD. Admission/Observation Consideration of admission/observation: Escalation of care including admission/observation considered I considered admission, however based on repeat troponin, resolution of symptoms, do not feel that admission is recommended at this time Lab Data [facility] Lab Attestation statement: I reviewed the patient's lab results. 12/24/22 17:29 12/24/22 17:29 Labs: Lab Results 12/24/22 12/24/22 12/24/22 Range/Units 17:29 17:29 17:29 WBC 5.4 (4.8-10.8) X10*3/uL RBC 4.76 (4.60-5.80) X10*6/uL Hgb 14.1 (14.0-18.0) g/dl Hct 41.9 L (42.0-52.0) % MCV 88.0 (80.0-98.0) fL MCH 29.6 (27.0-33.0) pg MCHC 33.7 (31.0-36.0) g/dl RDW 12.4 (11.0-16.0) % Plt Count 170 (160-400) X10*3/uL MPV 9.9 (9.4-12.4) fL Immature Gran % (Auto) 0.2 (0.0-0.4) % Neut % (Auto) 55.6 (45-73) % Lymph % (Auto) 32.7 (20-40) % [place] % (Auto) 7.8 (2-11) % Eos % (Auto) 3.1 (0-4) % Baso % (Auto) 0.6 (0-2) % Lymph # (Auto) 1.8 (1.2-4.9) X10*3/uL [place] # (Auto) 0.4 (0.1-1.2) X10*3/uL Eos # (Auto) 0.2 (0.0-0.4) X10*3/uL Baso # (Auto) 0.0 (0.0-0.2) X10*3/uL Abs Immat Gran (auto) 0.01 (0.00-0.03) X10*3/uL Absolute Neuts (auto) 3.0 (2.0-8.3) x10*3/uL Absolute Nucleated RBC 0.000 (0.0-0.012) X10*3/uL Nucleated RBC % (auto) 0.0 (0.0-0.2) /100WBC PT 11.6 (10.0-13.1) SEC INR 1.0 (0.9-1.1) APTT 34.0 (26.0-36.4) SEC Sodium 141 (135-145) mmol/L Potassium 3.9 (3.3-5.1) mmol/L Chloride 104 (96-108) mmol/L Carbon Dioxide 28 (22-29) mmol/L Anion Gap 13 (12-20) BUN 14 (9-16) mg/dL Creatinine 1.04 (0.5-1.4) mg/dL Estim Creat Clear Calc 104.2 Estimated GFR > 60 Random Glucose 120 H (60-115) mg/dL Calcium 9.6 (8.4-10.2) mg/dL Total Bilirubin 0.6 (0.0-1.0) mg/dL AST 18 (5-37) U/L ALT 18 (0-40) U/L Alkaline Phosphatase 69 (39-117) U/L Troponin I High Sens (<3.5-35.0) ng/L Total Protein 7.0 (6.5-8.0) g/dL Albumin 4.2 (3.5-5.0) g/dL Lipase 28 (8-78) U/L 12/24/22 12/24/22 Range/Units 17:29 20:35 WBC (4.8-10.8) X10*3/uL RBC (4.60-5.80) X10*6/uL Hgb (14.0-18.0) g/dl Hct (42.0-52.0) % MCV (80.0-98.0) fL MCH (27.0-33.0) pg MCHC (31.0-36.0) g/dl RDW (11.0-16.0) % Plt Count (160-400) X10*3/uL MPV (9.4-12.4) fL Immature Gran % (Auto) (0.0-0.4) % Neut % (Auto) (45-73) % Lymph % (Auto) (20-40) % [place] % (Auto) (2-11) % Eos % (Auto) (0-4) % Baso % (Auto) (0-2) % Lymph # (Auto) (1.2-4.9) X10*3/uL [place] # (Auto) (0.1-1.2) X10*3/uL Eos # (Auto) (0.0-0.4) X10*3/uL Baso # (Auto) (0.0-0.2) X10*3/uL Abs Immat Gran (auto) (0.00-0.03) X10*3/uL Absolute Neuts (auto) (2.0-8.3) x10*3/uL Absolute Nucleated RBC (0.0-0.012) X10*3/uL Nucleated RBC % (auto) (0.0-0.2) /100WBC PT (10.0-13.1) SEC INR (0.9-1.1) APTT (26.0-36.4) SEC Sodium (135-145) mmol/L Potassium (3.3-5.1) mmol/L Chloride (96-108) mmol/L Carbon Dioxide (22-29) mmol/L Anion Gap (12-20) BUN (9-16) mg/dL Creatinine (0.5-1.4) mg/dL Estim Creat Clear Calc Estimated GFR Random Glucose (60-115) mg/dL Calcium (8.4-10.2) mg/dL Total Bilirubin (0.0-1.0) mg/dL AST (5-37) U/L ALT (0-40) U/L Alkaline Phosphatase (39-117) U/L Troponin I High Sens < 2.7 8.7 D (<3.5-35.0) ng/L Total Protein (6.5-8.0) g/dL Albumin (3.5-5.0) g/dL Lipase (8-78) U/L Independent Interpretation I performed an independent interpretation of an: EKG and Plain X-Ray (I have personally interpreted chest x-ray and agree with radiologist impression) Interpretation: Rate: 57 Rhythm:? Sinus bradycardia [place]:? Normal Normal P waves.? Normal MARIS.?? Normal QRS complex.?? ST T wave :??No ST elevation, no ST depression, no T-wave inversion qTC: 404 prior studies:? None prior The study has been interpreted contemporaneously by me. Radiology Impression Discussion of test interpretation with radiology: I have reviewed the radiologist's reading. Radiologist Impression: XR/XR chest 2V IMPRESSION: Unremarkable examination. Independent Historian Clinical information obtained from an independent historian. History obtained from or confirmed by: Spouse ( who affirms history) Discharge Plan Discharge Clinical Impression: Chest pain Patient Disposition: Home, Self-Care Instructions: Chest Pain (ED) Additional Instructions: Please contact your primary care provider to arrange for a follow-up visit she is in the next 1-2 days. As we discussed your blood work was overall normal today. The EKG which review the electrical activity of your heart did not show any evidence of a heart attack which is very reassuring. Your chest x-ray today was normal. You may return back to emergency department any new or worsening symptoms or concerns. Prescriptions: No Action lamotrigine 25 mg tablet 2 tab PO DAILY multivitamin Tablet 1 tab PO DAILY hydrocodone-acetaminophen 5-325 mg tablet 1 tab PO Q4-6H PRN (Reason: pain) Qty: 5 0RF Rx Instructions: Partial Fill upon patient request. Referrals: Jordan Pierce MD [Primary Care Provider] - Interventions: ED Discharge Assessment Last Done: 12/24/22 21:24 Discharge Date/Time: 12/24/22 21:25
--- NOTE | 2022-12-24 15:41 | ECG_ITS ---
Test Reason : chest pain Blood Pressure : / mmHG Vent. Rate : 057 BPM Atrial Rate : 057 BPM P-R Int : 132 ms QRS Dur : 086 ms QT Int : 416 ms P-R-T Axes : 104 082 085 degrees QTc Int : 404 ms Sinus bradycardia Otherwise normal ECG No previous ECGs available Referred By: Carlo Son Electronically Signed By:DEEPAK DELAROSA
[2022-12-24 17:34] LABS: MANUAL DIFF FLAG NO
[2022-12-24 17:39] LABS: Basophils Percent Auto 0.6 % (0-2); Eosinophils Absolute Auto 0.2 X10*3/uL (0.0-0.4); Eosinophils Percent Auto 3.1 % (0-4); Hematocrit 41.9 % (42.0-52.0); Hemoglobin 14.1 g/dl (14.0-18.0); Imm Gran Abs Auto 0.01 X10*3/uL (0.00-0.03); Imm Gran Pct Auto 0.2 % (0.0-0.4); Lymphocytes Absolute Auto 1.8 X10*3/uL (1.2-4.9); Lymphocytes Percent Auto 32.7 % (20-40); Mean Corpuscular HGB Conc 33.7 g/dl (31.0-36.0); Mean Corpuscular Hemoglobin 29.6 pg (27.0-33.0); Mean Platelet Volume 9.9 fL (9.4-12.4); Monocytes Absolute Auto 0.4 X10*3/uL (0.1-1.2); Monocytes Percent Auto 7.8 % (2-11); Neutrophils Percent Auto 55.6 % (45-73); Platelet Count 170 X10*3/uL (160-400); Red Blood Count 4.76 X10*6/uL (4.60-5.80); Red Cell Distribution Width 12.4 % (11.0-16.0); White Blood Count 5.4 X10*3/uL (4.8-10.8)
[2022-12-24 17:51] LABS: Prothrombin Time 11.6 SEC (10.0-13.1)
[2022-12-24 17:53] LABS: Alanine Aminotransferase 18 U/L (0-40); Albumin Level 4.2 g/dL (3.5-5.0); Alkaline Phosphatase 69 U/L (39-117); Anion Gap 13 (12-20); Aspartate Amino Transferase 18 U/L (5-37); Bilirubin Total 0.6 mg/dL (0.0-1.0); Blood Urea Nitrogen 14 mg/dL (9-16); Calcium 9.6 mg/dL (8.4-10.2); Carbon Dioxide 28 mmol/L (22-29); Chloride 104 mmol/L (96-108); Creatinine Clr Calc Pharmacy 104.2; Estimated Glomerular Filt Rate > 60; Glucose Random 120 mg/dL (60-115); Lipase 28 U/L (8-78); Potassium 3.9 mmol/L (3.3-5.1); Sodium 141 mmol/L (135-145)
[2022-12-24 18:01] LABS: Troponin-I High Sensitivity < 2.7 ng/L (<3.5-35.0)
[2022-12-24 18:12] VITALS: BP 98/59; PULSE 54; RESP 12; TEMP 36.6; O2SAT 98
[2022-12-24 18:15] VITALS: BP 95/62; PULSE 52; RESP 12; O2SAT 98
[2022-12-24 20:11] VITALS: BP 102/62; PULSE 54; RESP 16; TEMP 37; O2SAT 98
[2022-12-24 21:10] LABS: Troponin-I High Sensitivity 8.7 ng/L (<3.5-35.0)
== END 2022-12-24 21:25 | disposition home or self-care (01) ==
PROVIDERS: Nurse Practitioner Family; Physician Assistant; Emergency Provider Emergency Medicine; PCP Internal Medicine
DX: R07.89 Other chest pain (principal); Z87.891 Personal history of nicotine dependence; Z79.899 Other long term (current) drug therapy
CPT/HCPCS: 36415; 71046; 80053; 83690; 84484; 85025; 85610; 85730; 93005; 99283; 99285

== ENCOUNTER 2022-12-30 07:48 | Outpatient (REF) | payer BC, SELFPAY ==
[2022-12-30 11:19] LABS: MANUAL DIFF FLAG NO
[2022-12-30 11:44] LABS: Basophils Percent Auto 0.5 % (0-2); Eosinophils Absolute Auto 0.2 X10*3/uL (0.0-0.4); Hematocrit 44.6 % (42.0-52.0); Hemoglobin 15.3 g/dl (14.0-18.0); Imm Gran Abs Auto 0.01 X10*3/uL (0.00-0.03); Imm Gran Pct Auto 0.2 % (0.0-0.4); Lymphocytes Absolute Auto 1.4 X10*3/uL (1.2-4.9); Lymphocytes Percent Auto 24.9 % (20-40); Mean Corpuscular HGB Conc 34.3 g/dl (31.0-36.0); Mean Corpuscular Hemoglobin 30.2 pg (27.0-33.0); Mean Corpuscular Volume 88.1 fL (80.0-98.0); Mean Platelet Volume 10.6 fL (9.4-12.4); Monocytes Absolute Auto 0.4 X10*3/uL (0.1-1.2); Monocytes Percent Auto 6.6 % (2-11); Neutrophils Absolute Auto 3.7 x10*3/uL (2.0-8.3); Neutrophils Percent Auto 64.8 % (45-73); Platelet Count 174 X10*3/uL (160-400); Red Blood Count 5.06 X10*6/uL (4.60-5.80); Red Cell Distribution Width 12.6 % (11.0-16.0); White Blood Count 5.6 X10*3/uL (4.8-10.8)
[2022-12-30 12:22] LABS: Vitamin B12 693 pg/mL (200-900)
[2022-12-30 12:40] LABS: Anion Gap 11 (12-20); Blood Urea Nitrogen 12 mg/dL (9-16); Calcium 9.5 mg/dL (8.4-10.2); Carbon Dioxide 28 mmol/L (22-29); Chloride 106 mmol/L (96-108); Cholesterol 171 mg/dL; Estimated Glomerular Filt Rate > 60; Glucose Random 90 mg/dL (60-115); HDL Cholesterol 47 mg/dL; Iron 111 mcg/dL (45-160); LDL Cholesterol Calculated 113 mg/dl; Percent Iron Saturation 48 % (15-50); Potassium 3.7 mmol/L (3.3-5.1); Sodium 141 mmol/L (135-145); Total Iron Binding Capacity 230 mcg/dL (228-428); Triglycerides 55 mg/dL; Unsaturated Iron Binding 119 ug/dL
== END 2022-12-30 07:49 | disposition home or self-care (01) ==
LOC: HO.HMGCLDS 07:48
PROVIDERS: PCP Internal Medicine; Visit Provider Internal Medicine
DX: D64.9 Anemia, unspecified (principal); R07.9 Chest pain, unspecified
CPT/HCPCS: 36415; 80048; 80061; 82607; 83540; 85025

== ENCOUNTER → 2023-01-02 08:15 | Outpatient (REF) | payer BC, SELFPAY ==
--- NOTE | 2023-01-02 08:18 | CA_ITS ---
Acquisition Time: 2023-01-02 08:28:14 Total Exercise Time: 00:10:12 Test Indications: OTHER CHEST PAIN Medications: Protocol: NICOLAS Max HR: 169 BPM 96% of Pred: 175 BPM Max BP: 148/066 mmHG Max Work Load: 12.0 METS PT EXERCISED ON STD NICOLAS PROTOCOL FOR 10 MIN INTO STAGE4. MAX HR 166-94%MAX. NO C/O CP OR SOB. ST DEP 1-2MM IN INF/LAT LEADS. NO ARRHYTHMIAS. EQUIVOCAL TEST. Referred By: Jordan Ray Overread By: NETTA RAY MD
== END ==
LOC: HO.CARD 08:15
PROVIDERS: PCP Internal Medicine; Visit Provider Internal Medicine
DX: R07.89 Other chest pain (principal)
CPT/HCPCS: 93017

== ENCOUNTER 2023-01-20 10:32 | Outpatient (REF) | payer BC, SELFPAY ==
--- NOTE | ~2023-01-20 | US_ITS ---
EXAMINATION: US RETROPERITONEAL LIMITED (RENAL ONLY) CLINICAL INFORMATION: Back pain, history of kidney stones. COMPARISON: CT abdomen and pelvis without contrast 11/29/2021. TECHNIQUE: Real-time imaging of the kidneys. FINDINGS: RIGHT KIDNEY: 12.0 x 4.6 x 5.5 cm (SAG x AP x TRV). The kidney is normal in size, contour, and echogenicity. Renal cortical thickness is normal. No hydronephrosis. 1.5 cm cyst in the lower pole. No imaging follow-up recommended. Small 3 mm stone in the lower pole. LEFT KIDNEY: 11.7 x 4.5 x 5.9 cm (SAG x AP x TRV). The kidney is normal in size, contour, and echogenicity. Renal cortical thickness is normal. No focal parenchymal lesions or hydronephrosis. 2 small stones measuring 5 mm and 2 mm in the midpole. US/US renal BI IMPRESSION: Small bilateral renal stones.
== END 2023-01-20 10:33 | disposition home or self-care (01) ==
LOC: HO.HMGCX 10:32
PROVIDERS: PCP Internal Medicine; Visit Provider Internal Medicine
DX: M54.50 Low back pain, unspecified (principal)
CPT/HCPCS: 76775

== ENCOUNTER → 2023-01-21 11:00 | Outpatient (BNV) | payer BC, SELFPAY | PROVIDERS: PCP Internal Medicine; Visit Provider Internal Medicine Cardiovascular Disease | DX: R07.9 Chest pain, unspecified (principal) | CPT/HCPCS: 93016; 93018; 93350; 93352 ==

== ENCOUNTER → 2023-01-21 11:00 | Outpatient (REF) | payer BC, SELFPAY ==
--- NOTE | 2023-01-21 11:00 | CA_ITS ---
Acquisition Time: 2023-01-21 11:03:36 Total Exercise Time: 00:11:07 Test Indications: CHEST PAIN Medications: LAMOTRIGNE Protocol: NICOLAS Max HR: 169 BPM 96% of Pred: 175 BPM Max BP: 138/068 mmHG Max Work Load: 13.4 METS Exercise stress test exercise 11 min 7 sec of Nicolas protocol achieving 96% MPHR, without anginal symptoms, without arrhythmias, with normotensive response to exercise, without EKG changes meeting criteria for ischemuia. Echo images obtained at rest and immediately post peak exercise. Definity contrast used. Test reviewed with Dr. Tristan. STRESS ECHO : Technique : Images were obtained at rest and immediately post exercise within 1 minute. Definity contrast was used to enhance endocardial definition. Images were obtained in multiple views and compared side to side. Findings : Images at rest ar eof good quality. LV systolic function is normal with normal wall motion. Post exercise images are borderline with off axis views. There is excellent augmentation of overall LV systolic function with no regional wall motion abanormalities. Conclusion : Stress echo is negative for ischemia. Referred By: Jordan Pierce Overread By: KHADIJAH STOKES MD
== END ==
LOC: HO.CARD 11:00
PROVIDERS: PCP Internal Medicine; Visit Provider Internal Medicine
DX: R07.9 Chest pain, unspecified (principal)
CPT/HCPCS: 93350; Q9957

== ENCOUNTER 2023-05-07 11:35 | Outpatient (AMB) | payer BC, SELFPAY ==
[2023-05-07 11:37] VITALS: BP 137/69; PULSE 72; O2SAT 99; BMI 26.0
--- NOTE | 2023-05-07 11:37 | A.OFFVIS_ITS ---
Intake Vital Signs 05/07/23 11:37 Height 6 ft 2 in Weight 202 lb 13.204 oz BMI 26.0 BP 137/69 Blood Pressure Location Rt brachial Position Sitting Pulse 72 Pulse Source Pulse Oximeter Pulse Oximetry (%) 99 Oxygen Delivery Method Room Air Intake Visit Reasons: Colonoscopy Screening Intake Note: Pt presents to the office today for a colonscopy screening. Pt states he is feeling well and denies any GI concerns at this time. Allergies No Known Allergies Allergy (Verified 05/07/23 11:39) HPI Colonoscopy Screening HPI Details 48 year old? male here today for pre col onoscopy screening.? Patient was sent to us by his PCP.? This is his first colonoscopy screening.? Patient denies any gastrointestinal symptoms in the past or at present.? Patient reports family history of of colorectal cancer. Patient's maternal uncle was diagnosed with rectal cancer in his early 50s. Patient denies history of difficulty with sedation or anesthesia in the past.? Negative for history of sleep apnea.? Denies any history of cardiac, renal, pulmonary, or hepatic disease.?? No history of infectious? diseases like hepatitis A, B, C, HIV or tuberculosis.? Patient is not on any anticoagulation therapy. [facility] Medical History Acute appendicitis History of depression No pertinent past medical history Surgical History History of laparoscopic appendectomy (11/29/21) H/O lithotripsy Social History (Updated 05/07/23 @ 11:40 by Anny High MA) Household Members: Spouse Housing: House Do you presently have visiting nurse or other home services: No Alcohol intake: current Alcohol intake frequency: 0-2 drinks per day Alcohol type: beer and hard liquor Patient Tobacco Use Status: Former Tobacco user Tobacco use type: Cigarette Second Hand Smoke Exposure: No service: No Current occupational status: unemployed Current occupation: silverman/rt hand Review of Systems Const Denies weight gain and Denies weight loss ENT Reports no additional complaints, Denies dysphagia and Denies odynophagia Card Reports no additional complaints Resp Reports no additional complaints GI Denies abdominal pain, Denies belching, Denies melena, Denies bloating, Denies change in bowel habits, Denies dysphagia, Denies excessive flatus, Denies dyspepsia, Denies heartburn, Denies diarrhea, Denies loose stools, Denies nausea, Denies odynophagia and Denies vomiting Reports no additional complaints Musc Reports no additional complaints Neuro Reports no additional complaints Psych Reports no additional complaints Endo Reports no additional complaints Physical Exam Vital Signs: Last Vital Signs Pulse 72 05/07/23 11:37 BP 137/69 05/07/23 11:37 Pulse Ox 99 05/07/23 11:37 Oxygen Delivery Method Room Air 05/07/23 11:37 BMI result Body Mass Index 26.0 Const General: healthy appearing, no acute distress and well developed Nutritional Appearance: well nourished Orientation/consciousness: patient oriented x3 HEENT Head: Yes normal to inspection, Yes normocephalic and Yes atraumatic Face and sinus: Yes normal facial exam Mouth: Normal oral and palatal mucosa present Throat: Yes posterior oropharynx normal, Yes tonsils normal and Yes uvula midline Eyes General: appearance normal, both eyes and all related structures Neck Neck: Yes normal visual inspection, Yes full ROM and Yes trachea midline Thyroid: Thyroid normal Resp Effort & Inspection: normal respiratory effort, able to speak in complete sentences, no tracheal deviation and symmetric chest movement Auscultation: clear to auscultation bilaterally Cardio Rate: regular rate Heart sounds: S1 normal heart sound present and S2 normal heart sound present GI Inspection: Yes normal to inspection and No distended Palpation (GI): Soft to palpation, not firm, nontender and No hepatosplenomegaly present Auscultation: normal bowel sounds General: Yes no CVA tenderness Back/Spine/Pelvis Back: no CVA tenderness Skin General skin exam: elasticity normal, turgor normal and dry skin Neuro General: patient oriented x3 Psych Appearance: grossly normal Mental Status: mental status grossly normal Assessment & Plan Assessment & Plan (1) Screen for colon cancer: Code(s): Z12.11 - Encounter for screening for malignant neoplasm of colon (2) Family history of colorectal cancer: Code(s): Z80.0 - Family history of malignant neoplasm of digestive organs Plan Patient denies any GI, cardiac or respiratory symptoms.? Denies any issues with anesthesia in the past.? Denies any history of sleep apnea.? No history infectious diseases in the past or present.? Not on any anticoagulation therapy.? As mentioned above in HPI patient has a family history of rectal cancer. Patient denies melena, hematochezia, unintentional weight loss or ribbon like stools.? Discussed at length the pre-procedure,? prep, diet & medications as well as what to expect prior, during and after the procedure.?? Stressed the importance of good bowel prep. ?Recommended the use of Vaseline or Calmoseptine OTC & baby wipes with bowel movements to promote comfort.? ?Patient verbalizes understanding and agrees to plan of care.? She was given the opportunity to ask questions and all questions answered.? We will see her after the procedure.? Medications: New bisacodyl (Dulcolax (bisacodyl)) take 4 tabs at noon the day before your colonoscopy 20 mg (4 x 5 mg) PO ONCE 1 day 4 tabs 0RF Z12.11 - Encounter for screening for malignant neoplasm of colon polyethylene glycol 3350 (Miralax) As directed by gastroenterology department at [facility] 238 grams PO ONCE 238 grams 0RF Z12.11 - Encounter for screening for malignant neoplasm of colon Coding Level of Care Code New Pt Level 3 (90544) Diagnoses Screen for colon cancer Z12.11 Family history of colorectal cancer Z80.0 Time Spent (min) 40 Comment 30 minutes spent with patient and additional 10 minutes spent reviewing his records
== END 2023-05-07 12:22 | disposition home or self-care (01) ==
PROVIDERS: PCP Internal Medicine; Visit Provider Nurse Practitioner Family
DX: Z01.818 Encounter for other preprocedural examination (principal); Z12.11 Encounter for screening for malignant neoplasm of colon; Z80.0 Family history of malignant neoplasm of digestive organs
CPT/HCPCS: S0285

== ENCOUNTER → 2023-05-07 11:35 | Outpatient (BNVA) | payer BC, SELFPAY | PROVIDERS: PCP Internal Medicine; Visit Provider Nurse Practitioner Family ==

== ENCOUNTER 2025-03-11 10:33 | Outpatient (AMB) | payer OTHER, SELFPAY ==
--- NOTE | 2025-03-11 10:38 | A.OFFVIS_ITS ---
Vital Signs 03/11/25 10:39 Height 6 ft 2 in Weight 87.685 kg BMI 24.8 BP 132/70 Blood Pressure Location Lt brachial Position Sitting Pulse 61 Pulse Source Pulse Oximeter Temp 98.0 F Temp Source Core Pulse Oximetry (%) 98 Oxygen Delivery Method Room Air Intake Visit Reasons: Annual Intake Note: Patient is here for his annual visit today. Patient would like to discuss toenail issue on left foot. Patient states he has aches and pains which prevents him from doing his work. Allergies No Known Allergies Allergy (Verified 03/11/25 10:44) HPI Comments Details: 50-year-old male with history of depression presents to the office today to establish care and for annual physical exam. Formerly Dr. Pierce patient, seen 2 years. Lives with and 2 children and feels safe there. He is self employed and owns several houses. Occasional alcohol use. No drugs including MJ. No cigarette. Eating/drinking a lot of sugar and no formal exercise Depression-there have been questions of bipolar disorder but he denies any h istory of diana. Symptoms have primarily been related to depression. Reports he has some episodes of sadness, but no serious depressive episodes. He reports that he prioritize asleep which help with symptom management in of alcohol compliant with lamotrigine 50 mg daily Concerns: Knee/hip bursitis/?tennis elbow Neck pain- goes to chiro yearly Toe nail hypertrophy Health maintenance: Has never undergone screening colonoscopy- had appt and cancelled. Reviewed past medical, surgical, family, social history ROS: General: No fevers, malaise, unintentional weight loss HEENT: No blurred vision, diplopia. No sore throat, nasal congestion, rhinorrhea, sinus pain, ear pain. No hearing loss Neck - no adenopathy Cardiovascular: No chest pain, palpitations, or leg edema Respiratory: No shortness of breath, wheezing, cough GI: No dysphagia, odynophagia, globus sensation. No abdominal pain, nausea, vomiting, diarrhea, constipation, melena, hematochezia : No dysuria, hematuria, increased urinary frequency, decreased urinary output. No testicular swelling or pain. No penile discharge MSK: No myalgia, back pain. See HPI Neuro: No headaches, weakness, paresthesias Psych: no depression/anxiery. No AH/VH. No SI/HI Skin: No rashes or lesions. see hpi EXAM: Constitutional - Awake and Alert, No apparent distress Eyes - PERRLA, EOMI. Anicteric Ears - external ears normal, canals clear, TMs intact and pearly caceres with good cone of light Nose- septum midline, nares clear, no sinus tenderness Mouth/throat- mucosa moist, tongue and uvula midline, no erythema/edema or tonsillar adenopathy. Neck-trachea midline, thyroid symmetric without palpable nodules, no adenopathy Cardiovascular - S1S2, RRR, No edema Respiratory - Normal lung expansion, Normal respiratory effort, No respiratory distress, CTA bilaterally Gastrointestinal - NT / ND; +BS; No rebound or guarding - No CVA tenderness Extremities - no calf tenderness bilaterally, no swelling Musculoskeletal - Normal inspection, normal ROM Skin - Warm/Dry, no concerning lesions. Thickened nails of the R great toe and 3rd L toe with yellow discoloration Neurological - Alert & oriented x3, CN II-XII in tact, 5/5 strength BUE and BLE, 2+ patellar reflexes, sensation intact Psychological - Appropriate affect PFSH Medical History (Updated 03/11/25 @ 11:50 by AUGUSTA Fuentes) Tennis elbow MDD (major depressive disorder) Nephrolithiasis Acute appendicitis No pertinent past medical history Surgical History History of laparoscopic appendectomy (11/29/21) H/O lithotripsy Family History (Updated 03/11/25 @ 11:20 by AUGUSTA Fuentes) Father Diabetes Mother HTN (hypertension) Maternal Uncle Rectal cancer Paternal Grandfather CAD (coronary artery disease) Social History Household Members: Spouse Housing: House Do you presently have visiting nurse or other home services: No Alcohol intake: current Alcohol intake frequency: 0-2 drinks per day Alcohol type: beer and hard liquor Patient Tobacco Use Status: Former Tobacco user Tobacco use type: Cigarette Second Hand Smoke Exposure: No service: No Current occupational status: unemployed Current occupation: silverman/rt hand Physical Exam Vital Signs: Last Vital Signs Temp 98.0 F 03/11/25 10:39 Pulse 61 03/11/25 10:39 BP 132/70 03/11/25 10:39 Pulse Ox 98 03/11/25 10:39 Oxygen Delivery Method Room Air 03/11/25 10:39 BMI result Body Mass Index 24.8 Assessment & Plan Assessment & Plan (1) Routine medical exam: Code(s): Z00.00 - Encounter for general adult medical examination without abnormal findings Category: Medical Plan: 50-year-old male presenting to the office to establish care and for physical exam. Plan as below (2) MDD (major depressive disorder): Code(s): F32.9 - Major depressive disorder, single episode, unspecified Category: Medical Plan: Stable. Continue lamotrigine and coping mechanisms (3) Hypertrophic toenail: Code(s): L60.2 - Onychogryphosis Category: Medical Plan: With onychomycosis. Prescribed cycle pyrexia. Referred to Podiatry for further evaluation management Plan Routine screening labs as ordered below Referred for colonoscopy Continue following for annual skin exams and use sun protection Annual eye exams Wear seat belt in car Recommend regular exercise and healthy diet. Referred to dietitian Follow up in 1 year, sooner if needed Exercises provided for tennis elbow. He also is recommended to use diclofenac gel for joint pain as he is not interested in systemic medication. Orders: Orders Lipid Panel Today Z00.00 - Encounter for general adult medical examination without abnormal findings Basic Metabolic Panel Today Z00.00 - Encounter for general adult medical examination without abnormal findings Liver Panel Today Z00.00 - Encounter for general adult medical examination without abnormal findings Complete Blood Count Auto Diff Today Z00.00 - Encounter for general adult medical examination without abnormal findings Referrals Podiatry Referral B35.1 - Tinea unguium, L60.2 - Onychogryphosis Academic Affairs Dean Nutrition Referral Z91.89 - Other specified personal risk factors, not elsewhere classified Gastroenterology Referral Z00.00 - Encounter for general adult medical examination without abnormal findings, Z12.11 - Encounter for screening for malignant neoplasm of colon Medications: New ciclopirox 8% Use nightly x7 days, then remove with alcohol pad/acetone and resume 1 appl topical BEDTIME 6.6 mL 0RF 4 weeks Discontinued bisacodyl (Dulcolax (bisacodyl)) take 4 tabs at noon the day before your colonoscopy Discontinued Reason: Doctor's Order 20 mg (4 x 5 mg) PO ONCE 1 day 4 tabs 0RF Z12.11 - Encounter for screening for malignant neoplasm of colon polyethylene glycol 3350 (Miralax) As directed by gastroenterology department at [facility] Discontinued Reason: Doctor's Order 238 grams PO ONCE 238 grams 0RF Z12.11 - Encounter for screening for malignant neoplasm of colon Patient Instructions: Try diclofenac gel/voltaren for joint pains Coding Level of Care Code New Pt Prev Care 40-64y(31117) Diagnoses Routine medical exam Z00.00 MDD (major depressive disorder) F32.9 Hypertrophic toenail L60.2 Thrive Questionnaire Date Thrive assessed: 03/11/25 I am a: Patient What is your living situation today?: I have a steady place to live Within the past 12 months, did the food you bought not last and you didn't have the money to get more?: Never true Within the past 12 months, did you worry whether your food would run out before you got money to buy more?: Never true Do you have trouble paying for medicines?: No Do you have trouble getting transportation to medical appointments?: No Do you have trouble paying your heating and electricity bill?: No Do you have trouble taking care of your child, family member or friend?: No Do you have trouble with day-to-day activities such as bathing, preparing meals, shopping, managing finances, etc.?: No Are you currently unemployed and looking for a job?: No Are you interested in more education?: No Please select the resources that you would like help with: None Currently or been in a relationship where the following occur: No concerns reported THRIVE Score: 0 AUDIT C Alcohol Use Questionnaire (AUDIT-C) 1. How often do you have a drink containing alcohol?: 4 or more times a week 2. How many drinks containing alcohol do you have on a typical day when you are drinking?: 1 or 2 3. How often do you have six or more drinks on one occasion?: Never Total Score: 4 Fall Risk Assessment Fall Risk Assessment Fall risk assessment: No Falls in past year MARY-7 AMB Questionnaire MARY-7 Date MARY - 7 assessed: 03/11/25 Feeling nervous, anxious, or on edge: 1 = Several days Not being able to stop or control worryin = Not at all Worrying too much about different things: 0 = Not at all Trouble relaxin = Several days Being so restless that it is hard to sit still: 0 = Not at all Becoming easily annoyed or irritable: 1 = Several days Feeling afraid as if something awful might happen: 0 = Not at all Total MARY-7 score (0-4 normal; 5-9 mild; 10-14 moderate; 15-21 severe): 3 Source: Developed by Drs. Asif Jacobo, Sana Kelly, Hong Pierce and colleagues, with an educational elliot from [employer]. PHQ-9 Over the last 2 weeks, how often have you been bothered by any of the following problems? 1. Little interest or pleasure in doing things: not at all 2. Feeling down, depressed, or hopeless: several days 3. Trouble falling or staying asleep, or sleeping too much: not at all 4. Feeling tired or having little energy: several days 5. Poor appetite or overeating: not at all 6. Feeling bad about yourself - or that you are a failure or have let yourself or your family down: not at all 7. Trouble concentrating on things, such as reading the newspaper or watching television: not at all 8. Moving or speaking so slowly that other people could have noticed. Or the opposite - being so fidgety or restless that you have been moving around a lot more than usual: not at all 9. Thoughts that you would be better off or of hurting yourself in some way: not at all Total score: 2 Depression Screening Interpretation: Negative Depression Screening Done: Yes Source: Developed by Drs. Asif Jacobo, Sana Kelly, Hong Pierce and colleagues, with an educational elliot from [employer].
[2025-03-11 10:39] VITALS: BP 132/70; PULSE 61; TEMP 36.7; O2SAT 98; BMI 24.8
== END 2025-03-11 12:42 | disposition home or self-care (01) ==
LOC: HO.HMCHD 10:33
PROVIDERS: PCP Internal Medicine; Visit Provider Physician Assistant
DX: Z00.00 Encounter for general adult medical examination without abnormal findings (principal); F32.9 Major depressive disorder, single episode, unspecified; L60.2 Onychogryphosis

== ENCOUNTER → 2025-03-11 10:33 | Outpatient (BNVA) | payer OTHER, SELFPAY | PROVIDERS: PCP Internal Medicine; Visit Provider Physician Assistant | DX: Z00.00 Encounter for general adult medical examination without abnormal findings (principal) ==

== ENCOUNTER 2025-03-18 08:04 | Outpatient (REF) | payer OTHER, SELFPAY ==
[2025-03-18 10:18] LABS: MANUAL DIFF FLAG NO
[2025-03-18 10:20] LABS: Hematocrit 45.4 % (42.0-52.0); Hemoglobin 15.6 g/dl (14.0-18.0); Imm Gran Abs Auto 0.01 X10*3/uL (0.00-0.03); Imm Gran Pct Auto 0.2 % (0.0-0.4); Lymphocytes Absolute Auto 1.7 X10*3/uL (1.2-4.9); Mean Corpuscular HGB Conc 34.4 g/dl (31.0-36.0); Mean Corpuscular Hemoglobin 30.1 pg (27.0-33.0); Mean Corpuscular Volume 87.6 fL (80.0-98.0); NRBC Abs Auto 0.000 X10*3/uL (0.0-0.012); NRBC Pct Auto 0.0 /100WBC (0.0-0.2); Platelet Count 190 X10*3/uL (160-400); Red Blood Count 5.18 X10*6/uL (4.60-5.80); White Blood Count 5.4 X10*3/uL (4.8-10.8)
[2025-03-18 10:40] LABS: Alanine Aminotransferase 23 U/L (0-40); Albumin Level 4.7 g/dL (3.5-5.0); Alkaline Phosphatase 76 U/L (39-117); Anion Gap 11 (12-20); Aspartate Amino Transferase 24 U/L (5-37); Blood Urea Nitrogen 12 mg/dL (9-16); Calcium 9.3 mg/dL (8.4-10.2); Carbon Dioxide 29 mmol/L (22-29); Chloride 104 mmol/L (96-108); Cholesterol 171 mg/dL (<200); Estimated Glomerular Filt Rate > 60; HDL Cholesterol 54 mg/dL (>40); Potassium 4.3 mmol/L (3.3-5.1); Sodium 140 mmol/L (135-145); Total Protein 7.1 g/dL (6.5-8.0); Triglycerides 56 mg/dL (<150)
== END 2025-03-18 08:05 | disposition home or self-care (01) ==
LOC: HO.10HDL 08:04
PROVIDERS: Visit Provider Physician Assistant
DX: Z00.00 Encounter for general adult medical examination without abnormal findings (principal); Z13.6 Encounter for screening for cardiovascular disorders
CPT/HCPCS: 36415; 80048; 80061; 80076; 85025

== ENCOUNTER 2025-03-22 08:57 | Outpatient (REF) | payer OTHER, SELFPAY | END 2025-03-22 08:58 | disposition home or self-care (01) | LOC: HO.LNP 08:57 | PROVIDERS: PCP Physician Assistant; Visit Provider Student in an Organized Health Care Education/Training Program | DX: M72.2 Plantar fascial fibromatosis (principal); B35.1 Tinea unguium; B35.3 Tinea pedis; Q66.71 Congenital pes cavus, right foot; Q66.72 Congenital pes cavus, left foot | CPT/HCPCS: 11720; 88304; 88312 ==

== ENCOUNTER 2025-03-22 08:57 | Outpatient (AMB) | payer OTHER, SELFPAY ==
[2025-03-22 09:00] VITALS: BMI 24.8
--- NOTE | 2025-03-22 09:00 | A.OFFVIS_ITS ---
Vital Signs 03/22/25 09:00 Height 6 ft 2 in Weight 193 lb BMI 24.8 Intake Visit Reasons: Onychogryphosis, Tinea Unguium Intake Note: Jabier is a 50 year old male who presents to the office today as a new patient visit referred by his PCP Phylicia Judd for Onychogryphosis and Hypertrophic toenail of his 3rd left toe. Pt reports he has bilateral Plantar fasciitis for about 22 years. He mentions having pain in his feet when he is wearing boots or any shoes that are not sneakers Allergies No Known Allergies Allergy (Verified 03/22/25 09:01) Medication List - Last Reconciled 03/22/25 by Edson Koenig DPM ciclopirox 8% 1 appl topical BEDTIME 4 weeks lamotrigine 50 mg (2 x 25 mg) PO DAILY multivitamin 1 tab PO DAILY terbinafine HCl 1% (Lamisil AT) 1 appl topical BID HPI HPI Onychogryphosis, Tinea Unguium: Details: The patient is a 50-year-old male no pertinent past medical history presents for initial evaluation of bilateral heel pain and toenail discoloration. The right great toenail issue began approximately three years ago following an injury where the nail broke and grew back abnormally. The patient noticed the nail was black and blue and bruised, and then the discoloration slowly disappeared however never completely changed back to normal. He also notes thickened discoloration to his left 3rd toenail which started approximately 3 months ago. 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 The patient has used custom orthotic inserts in the past, which provided relief, but now experiences discomfort with certain footwear, specifically when wearing boots. He states that the pain is worse with activity. He finds relief when wearing sandals.. He denies any acute onset of injury factors. [facility] Medical History (Updated 03/22/25 @ 09:52 by Edson Koenig DPM) Tennis elbow MDD (major depressive disorder) Nephrolithiasis Acute appendicitis No pertinent past medical history Surgical History History of laparoscopic appendectomy (11/29/21) H/O lithotripsy Family History (Updated 03/11/25 @ 11:20 by AUGUSTA Fuentes) Father Diabetes Mother HTN (hypertension) Maternal Uncle Rectal cancer Paternal Grandfather CAD (coronary artery disease) Social History Household Members: Spouse Housing: House Do you presently have visiting nurse or other home services: No Alcohol intake: current Alcohol intake frequency: 0-2 drinks per day Alcohol type: beer and hard liquor Patient Tobacco Use Status: Former Tobacco user Tobacco use type: Cigarette Second Hand Smoke Exposure: No service: No Current occupational status: unemployed Current occupation: silverman/rt hand Review of Systems Const All systems reviewed & are unremarkable except as noted in HPI and below Physical Exam Vital Signs: BMI result Body Mass Index 24.8 Extrem Other: *Bilateral Lower Extremity Focused Exam Vascular: DP/PT 2/4, CFT<3s to digits, TG warm to cool, no pedal edema Derm: Annual scaling plantar left foot. Plantar xerosis left heel. Left 3rd toe yellow discoloration with thickening approximately 90% of the nail. Neuro: Protective sensation grossly intact to bilateral lower extremities. MSK: No pain on palpation of the medial plantar calcaneal tubercle bilaterally. High arch cavus feet, mildly flexible. Office Procedures AMB Debridement/Avulsion Podia Details: Procedure: Nail biopsy Indication: Thickened left 3rd toenail Anesthesia: None Description: The digit was prepped. A sterile nail Nipper was used to resect the distal portion of the left 3rd toenail. The specimen was collected and sent for pathology. Tolerance: Patient tolerated procedure well, no immediate complications. Nail Biopsy: 59420 Nail unit biopsy (Left 3rd toe) Procedure code (CPT) selection complete Assessment & Plan Assessment & Plan (1) Plantar fasciitis, bilateral: Code(s): M72.2 - Plantar fascial fibromatosis Category: Medical Plan: * Discussed the etiology of his plantar fasciitis, which he is pre-disposed to due to his high-arch feet and the nature of his work. * The patient was counseled on conservative management of plantar fasciitis, including daily stretching exercises targeting the plantar fascia and Achilles tendon, use of supportive and properly fitting footwear, and consideration of custom or prefabricated orthotics to improve foot biomechanics. * He was referred to [facility] for custom foot orthosis. * Discussed that if symptoms persist despite these measures, further interventions such as corticosteroid injections may be considered. * Recommended bilateral x-rays at next visit if symptoms persist. (2) Onychomycosis: Code(s): B35.1 - Tinea unguium Category: Medical Plan: * Nail biopsy performed of left 3rd nail. * Discussed treatment options including topical treatment versus oral antifungal medications. * The patient was prescribed topical ciclopirox from his PCP which he has been applying for the past 3 days. The patient was instructed to continue the medication and to remove the polyps had seen of the week. He was also educated on the time to clinical/mycotic healing rates, which can take a minimum of 3 and likely 6-8 months prior to seeing any results. * He was then further instructed that the 2nd option would be an antifungal oral medication, which he can be started on if the topical ointment does not work. (3) Tinea pedis: Code(s): B35.3 - Tinea pedis Category: Medical Qualifiers: Laterality: left Qualified Code(s): B35.3 - Tinea pedis Plan: * Rx Lamisil ointment. 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, right foot; Q66.72 - Congenital pes cavus, left foot Category: Medical Plan: * Recommended x-rays at next visit Orders: Orders AMB Debridement/Avulsion Podiatry Today B35.1 - Tinea unguium Medications: New terbinafine HCl 1% (Lamisil AT) 1 appl topical BID 15 grams 3RF Athlete's foot B35.3 - Tinea pedis Coding Level of Care Code New Pt Level 4 (28220) Diagnoses Plantar fasciitis, bilateral M72.2 Onychomycosis B35.1 Tinea pedis of left foot B35.3 Laterality: left Cavus deformity of both feet Q66.71; Q66.72 CPT Codes Skin Debridement - CPT: 66522 Nail unit biopsy ([id number]) Time Spent (min) 45
== END 2025-03-22 09:30 | disposition home or self-care (01) ==
LOC: HO.HPODS 08:57
PROVIDERS: PCP Physician Assistant; Visit Provider Student in an Organized Health Care Education/Training Program
DX: M72.2 Plantar fascial fibromatosis (principal); B35.1 Tinea unguium; B35.3 Tinea pedis; Q66.71 Congenital pes cavus, right foot; Q66.72 Congenital pes cavus, left foot
CPT/HCPCS: 11720; 99204

== ENCOUNTER 2025-04-20 08:58 | Outpatient (AMB) | payer OTHER, SELFPAY ==
--- NOTE | 2025-04-20 09:15 | A.OFFVIS_ITS ---
Vital Signs 04/20/25 09:16 Height 6 ft 2 in Weight 193 lb BMI 24.8 Intake Visit Reasons: Follow Up Onychogryphosis, Tinea Unguium Intake Note: Jabier is a 50 year old male who presents to the office today for a follow up Onychogryphosis, Tinea Unguium. At last visit a nail biopsy was performed on left 3rd nail. Pt states since his last visit he sees slight improvement he has been using ciclopirox 8% that was prescribed by his PCP to treat his fungus. Diagnosis: Toe nail, removal: Fragments of nail matrix with parakeratosis and acute inflammation with associated fungal organisms (highlighted by special stain PASF) consistent with onychomycosis Allergies No Known Allergies Allergy (Verified 04/20/25 09:16) HPI HPI Follow Up Onychogryphosis, Tinea Unguium: Details: The patient is a 50-year-old male no pertinent past medical history presents for follow up evaluation of bilateral heel pain and toenail discoloration. He states that the heel pain is yeast distiller. He brought his orthotics today for evaluation and new prescription. He states that he went to the pharmacy to order picker/assembler his prescription for the antifungal ointment however they recommended an [id number] medication which he has been applying and did not work for him. He used it for proximally every night for 2 weeks. He has also been applying the antifungal ghanaian over his left 3rd toe nail. History: The right great toenail issue began approximately three years ago following an injury where the nail broke and grew back abnormally. The patient noticed the nail was black and blue and bruised, and then the discoloration slowly disappeared however never completely changed back to normal. He also notes thickened discoloration to his left 3rd toenail which started approximately 3 months ago. 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 The patient has used custom orthotic inserts in the past, which provided relief, but now experiences discomfort with certain footwear, specifically when wearing boots. He states that the pain is worse with activity. He finds relief when wearing sandals.. He denies any acute onset of injury factors. [facility] Medical History (Updated 03/22/25 @ 09:52 by Edson Koenig DPM) Tennis elbow MDD (major depressive disorder) Nephrolithiasis Acute appendicitis No pertinent past medical history Surgical History History of laparoscopic appendectomy (11/29/21) H/O lithotripsy Family History (Updated 03/11/25 @ 11:20 by AUGUSTA Fuentes) Father Diabetes Mother HTN (hypertension) Maternal Uncle Rectal cancer Paternal Grandfather CAD (coronary artery disease) Social History Household Members: Spouse Housing: House Do you presently have visiting nurse or other home services: No Alcohol intake: current Alcohol intake frequency: 0-2 drinks per day Alcohol type: beer and hard liquor Patient Tobacco Use Status: Former Tobacco user Tobacco use type: Cigarette Second Hand Smoke Exposure: No service: No Current occupational status: unemployed Current occupation: silverman/rt hand Physical Exam Vital Signs: BMI result Body Mass Index 24.8 Extrem Other: *Bilateral Lower Extremity Focused Exam Vascular: DP/PT 2/4, CFT<3s to digits, TG warm to cool, no pedal edema Derm: Annual scaling plantar left foot. Plantar xerosis left heel. Left 3rd toe yellow discoloration with thickening approximately 90% of the nail. Neuro: Protective sensation grossly intact to bilateral lower extremities. MSK: Mild pain on palpation of the medial plantar calcaneal tubercle bilaterally. High arch cavus feet, mildly flexible. Right Ankle dorsiflexion 0 degrees on knee extension, 3 degrees on knee flexion. Left ankle dorsiflexion 5 degrees on knee extension, mild increase on knee flexion. Results Reviewed Results Reviewed: 03/23/2025 left 3rd toe nail pathology: Fragments of nail matrix with parakeratosis and acute inflammation with associated fungal organisms (highlighted by special stain PASF) consistent with onychomycosis. Assessment & Plan Assessment & Plan (1) Plantar fasciitis, bilateral: Code(s): M72.2 - Plantar fascial fibromatosis Category: Medical Plan: * Discussed the etiology of his plantar fasciitis, which he is pre-disposed to due to his high-arch feet and the nature of his work. * The patient was counseled on conservative management of plantar fasciitis, including daily stretching exercises targeting the plantar fascia and Achilles tendon, use of supportive and properly fitting footwear, and consideration of custom or prefabricated orthotics to improve foot biomechanics. * He was referred to [facility] for custom foot orthosis. A prescription was written today and given to the patient. * Discussed that if symptoms persist despite these measures, further interventions such as corticosteroid injections may be considered. (2) Tinea pedis: Code(s): B35.3 - Tinea pedis Category: Medical Qualifiers: Laterality: left Qualified Code(s): B35.3 - Tinea pedis Plan: * Rx clotrimazole ointment (3) Onychomycosis: Code(s): B35.1 - Tinea unguium Category: Medical Plan: * Debrided left 3rd toe nail using a dremel tool to have better penetration of the nail with the ciclopirox. * Discussed treatment options including topical treatment versus oral antifungal medications. * The patient was prescribed topical ciclopirox from his PCP which he has been applying for the past 3 days. The patient was instructed to continue the medication and to remove the ghanaian at the end of the week. He was also educated on the time to clinical/mycotic healing rates, which can take a minimum of 3 and likely 6-8 months prior to seeing any results. * He was then further instructed that the second option would be an antifungal oral medication, which he can be started on if the topical ointment does not work. 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
[2025-04-20 09:16] VITALS: BMI 24.8
== END 2025-04-20 09:44 | disposition home or self-care (01) ==
LOC: HO.HPODS 08:58
PROVIDERS: PCP Physician Assistant; Visit Provider Student in an Organized Health Care Education/Training Program
DX: M72.2 Plantar fascial fibromatosis (principal); B35.3 Tinea pedis; B35.1 Tinea unguium; Q66.71 Congenital pes cavus, right foot; Q66.72 Congenital pes cavus, left foot
CPT/HCPCS: 99214

== ENCOUNTER 2025-05-03 09:31 | Outpatient (AMB) | payer OTHER, SELFPAY ==
--- NOTE | 2025-05-03 09:45 | A.OFFVIS_ITS ---
VS Expanded 05/03/25 09:46 05/10/25 18:39 Height 6 ft 1.5 in 6 ft 1.5 in Weight 193 lb 12.581 oz 194 lb BMI 25.2 25.2 Intake Visit Reasons: Other specified personal risk factors, not elsewhe Allergies No Known Allergies Allergy (Verified 04/20/25 09:16) Nutrition Presentation Details: Pt presents for MNT for general nutrition Pt reports typically having one to 2 meal/day following healthy plate method throughout the day chooses unhealthy snacks, reports gradually improving throughout the years leading to weight loss, was > 220 lbs food frequency fruits: 0-1/d ve-3 serving/daily dairy> 3 serving/d fish : 0-1/wk physical activity: ADL +at work physical work etoh/smoking --- BS Monitoring Most Recent Diabetes Results: Cholesterol, (<200) 171 mg/dL 03/18/25 HDL Cholesterol, (>40) 54 mg/dL 03/18/25 Triglycerides, (<150) 56 mg/dL 03/18/25 Creatinine, (0.5-1.4) 1.06 mg/dL 03/18/25 BUN, (9-16) 12 mg/dL 03/18/25 Sodium, (135-145) 140 mmol/L 03/18/25 Potassium, (3.3-5.1) 4.3 mmol/L 03/18/25 Chloride, (96-108) 104 mmol/L 03/18/25 Carbon Dioxide, (22-29) 29 mmol/L 03/18/25 Calcium, (8.4-10.2) 9.3 mg/dL 03/18/25 AST, (5-37) 24 U/L 03/18/25 ALT, (0-40) 23 U/L 03/18/25 Total Protein, (6.5-8.0) 7.1 g/dL 03/18/25 Albumin, (3.5-5.0) 4.7 g/dL 03/18/25 XYI-Fgcuiss-Sg.Jeor Equation Height: 6 ft 1.5 in Weight: 194 lb Resting Metabolic Rate: 1814.74 Calculated Activity Level: Mild Activity Calories Needed to Maintain Weight: 2495.27 Diagnosis Nutrition problem #1: food nutri know defi As related to (etiology) #1: aversion to food/beverage PFSH Medical History (Updated 05/10/25 @ 18:[address], LDN) Tennis elbow MDD (major depressive disorder) Nephrolithiasis Acute appendicitis No pertinent past medical history Surgical History History of laparoscopic appendectomy (11/29/21) H/O lithotripsy Family History (Updated 03/11/25 @ 11:20 by AUGUSTA Fuentes) Father Diabetes Mother HTN (hypertension) Maternal Uncle Rectal cancer Paternal Grandfather CAD (coronary artery disease) Social History Household Members: Spouse Housing: House Do you presently have visiting nurse or other home services: No Alcohol intake: current Alcohol intake frequency: 0-2 drinks per day Alcohol type: beer and hard liquor Patient Tobacco Use Status: Former Tobacco user Tobacco use type: Cigarette Second Hand Smoke Exposure: No service: No Current occupational status: unemployed Current occupation: silverman/rt hand Assessment & Plan Assessment & Plan (1) Other specified personal risk factors, not elsewhere classified: Code(s): Z91.89 - Other specified personal risk factors, not elsewhere classified Category: Medical Plan: current wt: 88 kg ( 04/30 ) est kcal needs as per MSJ: 2500 est protein needs as per 1 g/kg BW: 90 est fluid needs as per 30 ml/kg BW: 2600 Recommended fiber > 12 g /day and gradually increase up to 25-28 g /day or as tolerated NA< 2300 mg/d Nutrition topics discussed : Reviewed (R), Pt verbalized understanding (V) , not applicable (N/A) R, V, : Healthy Plate Method Concept: R, V, N/A: Carbohydrates: food sources of carbohydrates, relationship of carbohydrates to blood glucose, fatty liver GI health. Recommended total amount of carbohydrates per meals and snack. Differences between simple carbohydrates and complex carbohydrates R, V, N/A: Lean protein foods including vegan , vegetarian sources of protein. Benefits of protein (including but not limited to healing, nutritional value , benefits in weight loss, glucose control R, V, N/A: Fats : Source of fats, benefits of fats. Difference between saturated and unsaturated fats. Saturated fats and its contribution to inflammation R, V, N/A: Fiber: food sources and role of fiber in the diet (including but not limited to its role as a prebiotic, benefits in constipation, role in IBS , role in glucose control and cholesterol level) R, V: Hydration: role of hydration and prevention of dehydration or over hydration. Foods and water content. R, V, N/A: Vitamins and Minerals in foods and supplements R, V, N/A: Interpreting food labels, including serving size, macronutrients, vitamins, minerals, allergens, ingredient list , % daily value Patient Instructions: Work on having 3 meals/day following healthy plate method - choosing complex carb with a combination of lean protein food Choose a combination of fiber rich foods and lean protein as snack - see list of snack options keep hydrated by choosing water, low sugar beverages Coding Level of Care Code Nutr Indiv Intake (84724) Diagnoses Other specified personal risk factors, not elsewhere classified Z91.89 Time Spent (min) 30
[2025-05-03 09:46] VITALS: BMI 25.2
[2025-05-10 18:39] VITALS: BMI 25.2
== END 2025-05-03 10:23 | disposition home or self-care (01) ==
LOC: HO.ENCR 09:31
PROVIDERS: PCP Physician Assistant; Visit Provider Dietitian, Registered
DX: Z91.89 Other specified personal risk factors, not elsewhere classified (principal)

== ENCOUNTER → 2025-05-03 09:31 | Outpatient (BNVA) | payer OTHER, SELFPAY | PROVIDERS: PCP Physician Assistant; Visit Provider Dietitian, Registered | DX: Z91.89 Other specified personal risk factors, not elsewhere classified (principal) | CPT/HCPCS: 97802 ==

== ENCOUNTER 2025-05-19 08:58 | Outpatient (AMB) | payer OTHER, SELFPAY ==
[2025-05-19 09:08] VITALS: BMI 25.2
--- NOTE | 2025-05-19 09:08 | A.OFFVIS_ITS ---
Vital Signs 05/19/25 09:08 Height 6 ft 1.5 in Weight 194 lb BMI 25.2 Intake Visit Reasons: Follow Up Onychogryphosis, Tinea Unguium Intake Note: Jabier is a 50 year old male who presents today for a follow up on his plantar fasciitis and tinea unguium. At his last visit he was advised to perform stretching & range of motion exercises, Utilize supportive and properly fitting footwear, and he was referred to [facility] for custom foot orthosis. His toe nails where derided during his last visit and specimens where sent for pathology and microbiology. Patient was prescribed clotrimazole to treat his fungus. Patient reports he never received a call from the [facility] and due to insurance coverage issues he never received his clotrimazole medication. Allergies No Known Allergies Allergy (Verified 05/19/25 09:09) HPI HPI Follow Up Onychogryphosis, Tinea Unguium: Details: The patient is a 50-year-old male no pertinent past medical history presents for follow up evaluation of bilateral heel pain and toenail discoloration. He was unable to receive his topical antifungal medication due to his pharmacy either never see me at or denying it. He denies any heel pain at this point, stating it is only present whenever he wears boots. He also feels that his orthotics do not fit into his boots and he is requesting a new referral since [facility] had never called him. History: The right great toenail issue began approximately three years ago following an injury where the nail broke and grew back abnormally. The patient noticed the nail was black and blue and bruised, and then the discoloration slowly disappeared however never completely changed back to normal. He also notes thickened discoloration to his left 3rd toenail which started approximately 3 months ago. 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 The patient has used custom orthotic inserts in the past, which provided relief, but now experiences discomfort with certain footwear, specifically when wearing boots. He states that the pain is worse with activity. He finds relief when wearing sandals.. He denies any acute onset of injury factors. [facility] Medical History (Updated 05/10/25 @ 18:[address], LDN) Tennis elbow MDD (major depressive disorder) Nephrolithiasis Acute appendicitis No pertinent past medical history Surgical History History of laparoscopic appendectomy (11/29/21) H/O lithotripsy Family History (Updated 03/11/25 @ 11:20 by AUGUSTA Fuentes) Father Diabetes Mother HTN (hypertension) Maternal Uncle Rectal cancer Paternal Grandfather CAD (coronary artery disease) Social History Household Members: Spouse Housing: House Do you presently have visiting nurse or other home services: No Alcohol intake: current Alcohol intake frequency: 0-2 drinks per day Alcohol type: beer and hard liquor Patient Tobacco Use Status: Former Tobacco user Tobacco use type: Cigarette Second Hand Smoke Exposure: No service: No Current occupational status: unemployed Current occupation: silverman/rt hand Review of Systems Const All systems reviewed & are unremarkable except as noted in HPI and below Physical Exam Vital Signs: BMI result Body Mass Index 25.2 Extrem Other: *Bilateral Lower Extremity Focused Exam Vascular: DP/PT 2/4, CFT<3s to digits, TG warm to cool, no pedal edema Derm: Annual scaling plantar left foot. Plantar xerosis left heel. Left 3rd toe yellow discoloration with thickening approximately 90% of the nail. Neuro: Protective sensation grossly intact to bilateral lower extremities. MSK: Mild pain on palpation of the medial plantar calcaneal tubercle bilaterally. High arch cavus feet, mildly flexible. Right Ankle dorsiflexion 0 degrees on knee extension, 3 degrees on knee flexion. Left ankle dorsiflexion 5 degrees on knee extension, mild increase on knee flexion. Results Reviewed Results Reviewed: 03/23/2025 left 3rd toe nail pathology: Fragments of nail matrix with parakeratosis and acute inflammation with associated fungal organisms (highlighted by special stain PASF) consistent with onychomycosis. Assessment & Plan Assessment & Plan (1) Plantar fasciitis, bilateral: Code(s): M72.2 - Plantar fascial fibromatosis Category: Medical Plan: * Discussed the etiology of his plantar fasciitis, which he is pre-disposed to due to his high-arch feet and the nature of his work. * The patient was counseled on conservative management of plantar fasciitis, including daily stretching exercises targeting the plantar fascia and Achilles tendon, use of supportive and properly fitting footwear, and consideration of custom or prefabricated orthotics to improve foot biomechanics. * [facility]. A prescription was written today and given to the patient. * Discussed that if symptoms persist despite these measures, further interventions such as corticosteroid injections may be considered. (2) Tinea pedis: Code(s): B35.3 - Tinea pedis Category: Medical Qualifiers: Laterality: left Qualified Code(s): B35.3 - Tinea pedis Plan: * Continue clotrimazole ointment (3) Onychomycosis: Code(s): B35.1 - Tinea unguium Category: Medical Plan: * Rx Ciclopirox re-sent to the pharmacy Medications: New [Custom Foot Ortosis] Custom Foot Orthosis (standard arch, deep heel cup, full length) 1 ea 0RF cavus feet deformity M72.2 - Plantar fascial fibromatosis, Q66.71 - Congenital pes cavus, right foot, Q66.72 - Congenital pes cavus, left foot Changed From ciclopirox 8% Use nightly x7 days, then remove with alcohol pad/acetone and resume 1 appl topical BEDTIME 4 weeks 6.6 mL 0RF B35.1 - Tinea unguium To ciclopirox 8% Apply to fungal toenails daily. Remove build-up at the end of the week. 1 appl topical BEDTIME 6.6 mL 3RF fungal nails 4 weeks B35.1 - Tinea unguium Coding Level of Care Code Est Pt Level 3 (77987) Diagnoses Plantar fasciitis, bilateral M72.2 Tinea pedis of left foot B35.3 Laterality: left Onychomycosis B35.1 Time Spent (min) 30
== END 2025-05-19 09:25 | disposition home or self-care (01) ==
LOC: HO.HPODS 08:59
PROVIDERS: PCP Physician Assistant; Visit Provider Student in an Organized Health Care Education/Training Program
DX: M72.2 Plantar fascial fibromatosis (principal); B35.3 Tinea pedis; B35.1 Tinea unguium
CPT/HCPCS: 99213